=== PATIENT | male | born 1960 | race Caucasian/White ===

== ENCOUNTER 2017-11-02 13:24 | Inpatient (IN) | payer OTHER ==
[~2017-11-02] VITALS: Ht 172.7 cm; Wt 88.5 kg
[~2017-11-02 13:24] MED LIST: NOHOMEMEDICATIONS; NORCO 5-325 TA1 EACH PO
[2017-11-02 13:32] VITALS: BP 164/104
[2017-11-02 14:26] LABS: ABSOLUTE BASOPHILS 0.1 thou/uL (0.0-0.2); ABSOLUTE EOSINOPHILS 0.3 thou/uL (0.0-0.7); ABSOLUTE LYMPHOCYTES 1.7 thou/uL (0.8-5.3); ABSOLUTE MONOCYTES 1.5 thou/uL (0.0-1.2); ABSOLUTE NEUTROPHILS 12.6 thou/uL (1.6-8.1); BASOPHILS 0.9 %; EOSINOPHILS 2.1 %; HEMATOCRIT 46.4 % (42.0-52.0); HEMOGLOBIN 15.6 gm/dL (14.0-18.0); LYMPHOCYTES 10.6 %; MCH 31.2 pg (26.0-34.0); MCHC 33.5 g/dL (28.0-37.0); MCV 93.1 fL (80.0-100.0); MONOCYTES 9.4 %; MPV 8.7 fl. (7.2-11.1); NUCLEATED RBCS 0 /100WBC; PLATELET COUNT* 354 thou/uL (150-400); RBC 4.98 mil/uL (4.50-6.00); RDW-CV 13.3 % (10.5-14.5); WBC 16.4 thou/uL (4.0-11.0)
[2017-11-02 14:35] LABS: CALCIUM 8.5 mg/dL (8.5-10.1); CREATININE 0.7 mg/dL (0.6-1.3); POTASSIUM 4.2 mmol/L (3.5-5.1)
[2017-11-02 14:39] LABS: ALBUMIN 3.1 g/dL (3.4-5.0); TOTAL BILIRUBIN 0.8 mg/dL (<0.1-1.0); TOTAL PROTEIN 7.4 g/dL (6.4-8.2)
[2017-11-02 20:20] VITALS: BP 142/82
[2017-11-02 20:30] VITALS: BP 136/75
[2017-11-03 05:14] LABS: HEMATOCRIT 42.9 % (42.0-52.0); HEMOGLOBIN 14.7 gm/dL (14.0-18.0); MCH 31.6 pg (26.0-34.0); MCHC 34.3 g/dL (28.0-37.0); MCV 92.2 fL (80.0-100.0); MPV 9.3 fl. (7.2-11.1); NUCLEATED RBCS 0 /100WBC; PLATELET COUNT* 352 thou/uL (150-400); RBC 4.65 mil/uL (4.50-6.00); RDW-CV 13.5 % (10.5-14.5); WBC 14.7 thou/uL (4.0-11.0)
[2017-11-03 05:25] LABS: CALCIUM 8.2 mg/dL (8.5-10.1); CREATININE 0.7 mg/dL (0.6-1.3)
[2017-11-03 06:24] LABS: ABSOLUTE EOSINOPHILS 0.4 thou/uL (0.0-0.7); ABSOLUTE LYMPHOCYTES 1.2 thou/uL (0.8-5.3); ABSOLUTE MONOCYTES 0.6 thou/uL (0.0-1.2); ABSOLUTE NEUTROPHILS 12.5 thou/uL (1.6-8.1); ANISOCYTOSIS 1+; PLATELET ESTIMATE ADEQUATE; POIKILOCYTOSIS 1+
--- NOTE | 2017-11-03 06:37 | NUR ---
PATIENT ARRIVED ON FLOOR FROM ER ABOUT 2014 BROUGHT BY WHEELCHAIR. PATIENT ADMISSION HISTORY AND ASSESSMENT WAS COMPLETED CHARTED. IV FLUIDS WERE STARTED AT 100 ML/HR. PATIENT WAS GIVEN SCHEDULED TORADOL FOR PAIN AND NAUSEA MEDICINE ONCE. WILL CONTINUE TO MONITOR.
[2017-11-03 09:00] VITALS: BP 125/81
[2017-11-03 11:33] LABS: APTT 35.9 Seconds (25.0-31.3); INR 1.1; PROTIME 10.7 Seconds (9.20-11.50)
--- NOTE | 2017-11-03 14:58 | NUR ---
CM SPOKE TO THE PATIENT TO DISCUSS HOME SITUTAIION, DISCHARGE PLANNING, AND TO INFORM OF THE ROLE OF CM. PATIENT WORKS AND DRIVES. PATIENT RESIDES AT HOME WITH . PATIENT USES 0 DME. PATIENT HAS NO HX OF HH OR SNF. CM WILL REMAIN AVAILABLE TO ASSIST AND FOLLOW NEEDED.
[2017-11-03 16:07] VITALS: BP 160/87
[2017-11-03 16:44] VITALS: BP 151/78
--- NOTE | 2017-11-03 16:44 | NUR ---
PATIENT NPO ALL MORNING FOR ABCESS DRAIN PLACEMENT THIS AFTERNOON. DRAIN IN PLACE TO LLQ, SEROSANGINOUS DRAINAGE NOTED. VITALS STABLE. PRN ZOFRAN GIVEN X 2 FOR NAUSEA. SCHED TORADAOL GIVEN ORDERED. IVF REMAINS INFUSING WITH SCHED ABX. AT BEDSIDE. CLEAR LIQUID DIET STARTED THIS EVENING PER SURGERY.
[2017-11-03 23:41] VITALS: BP 151/63
[2017-11-04 03:44] LABS: ABSOLUTE BASOPHILS 0.1 thou/uL (0.0-0.2); ABSOLUTE EOSINOPHILS 0.3 thou/uL (0.0-0.7); ABSOLUTE LYMPHOCYTES 1.2 thou/uL (0.8-5.3); ABSOLUTE MONOCYTES 1.5 thou/uL (0.0-1.2); ABSOLUTE NEUTROPHILS 11.4 thou/uL (1.6-8.1); BASOPHILS 0.8 %; EOSINOPHILS 2.1 %; HEMATOCRIT 43.5 % (42.0-52.0); HEMOGLOBIN 14.4 gm/dL (14.0-18.0); MCH 30.7 pg (26.0-34.0); MCV 92.8 fL (80.0-100.0); MONOCYTES 10.2 %; MPV 8.6 fl. (7.2-11.1); NUCLEATED RBCS 0 /100WBC; PLATELET COUNT* 377 thou/uL (150-400); POLYS 78.9 %; RBC 4.69 mil/uL (4.50-6.00); RDW-CV 13.2 % (10.5-14.5); WBC 14.5 thou/uL (4.0-11.0)
[2017-11-04 03:54] LABS: CALCIUM 8.3 mg/dL (8.5-10.1); CREATININE 0.6 mg/dL (0.6-1.3); POTASSIUM 4.4 mmol/L (3.5-5.1)
--- NOTE | 2017-11-04 06:15 | NUR ---
PATIENT SLEPT MOST OF THE NIGHT. IV FLUIDS CONTINUE TO INFUSE AT 100 ML/HR. PATIENT WAS GIVEN PAIN MEDS TWICE THIS SHIFT. JODI DRAIN REMAINS IN PLACE TO LLQ OF THE ABDOMEN. WILL CONTINUE TO MONITOR.
[2017-11-04 09:00] VITALS: BP 122/86
[2017-11-04 16:20] VITALS: BP 171/98
[2017-11-04 20:00] VITALS: BP 177/97
--- NOTE | 2017-11-04 20:46 | NUR ---
ASSUMED CARES OF PT AT 0700. PT IN BED, BED IN LOW AND LOCKED POSITION. FALL PRECAUTIONS MONITORED, PT UP INDEPENDENTLY, STEADY GAIT. CALL BUTTON AND PERSONAL ITEMS IN PT REACH. PT A&O X4, AT BEDSIDE MOST OF SHIFT. HRRR PER AUSCULTATION, LCTAB, VSS ON RA, AFEBRILE, PERRLA, SKIN INTACT, SCATTERED BRUISING. LAST BM 6+ DAYS AGO PER PT. ABD DISTENDED, FIRM, GASSY, UNCOMFORTABLE PER PT STATEMENT AND PALPATATION. PT CLEAR LIQUID DIET. LEFT WRIST IV PATENT TO FLUSH AND IV ABT/TOLERATED, NO AVR. JODI DRAIN LEFT LQ PATENT. DR LYNCH PROVIDED NEW ORDERS FOR PT NPO, ABD XRAY AND SUPPOSITORY FOR CONSTIPATION IF PT REQUESTED. PT EXPERIENCED TWO EPISODES OF N/V, ZOFRAN ADMINISTERED, EFFECTIVE PER PT STATEMENT. HOURLY ROUNDS COMPLETED. PT COOPERATIVE, PLEASANT. REPORT TO RPG PROGRAMMER ANALYST FOR CONTINUED CARES. PT IN BED WATCHING TV AT SHIFT CHANGE.
[2017-11-05] VITALS: BP 172/97
[2017-11-05 04:16] LABS: HEMATOCRIT 43.5 % (42.0-52.0); HEMOGLOBIN 14.6 gm/dL (14.0-18.0); MCHC 33.7 g/dL (28.0-37.0); MPV 9.4 fl. (7.2-11.1); RBC 4.73 mil/uL (4.50-6.00); RDW-CV 13.2 % (10.5-14.5); WBC 13.6 thou/uL (4.0-11.0)
[2017-11-05 04:41] LABS: CALCIUM 8.5 mg/dL (8.5-10.1); CREATININE 0.6 mg/dL (0.6-1.3); PHOSPHORUS* 4.2 mg/dL (2.5-4.9); POTASSIUM 4.3 mmol/L (3.5-5.1)
[2017-11-05 07:30] VITALS: BP 154/91
--- NOTE | 2017-11-05 08:17 | NUR ---
DURING NIGHT PATIENT MX COMPLAINTS OF PAIN DISCOMFORT IN ABDOMEN ET NAUSEA NG PLACED AT 2323 EPISODE OF EMESIS OCCURED POST PLACEMENT POSITIVE FOR AUSCULTATION PLACEMENT XRAY OBTAINED FOR PLACEMENT CHECK RN [facility] RECEIVED REPORT PLACEMENT CONFIRMED NEUROLOGY SPECIALIST CONNECTED TO LOW INTERMI SUCTION ORDERED PATIENT RECEIVED PRN ANTIEMETIC X 2 ET PRN MORPHINE X 1 GEN SURG ONCALL GAVE ORDER FOR DISCOMFORT T.O PATIENT REPORTS IMPROVEMENT IN SX SPOUSE ET PATIENT REQUEST GI CONSULT IN CONJUNCTION WITH GEN SURG FOLLOWING ORDER OBTAINED Sebastian LYNCH CONSULT HIMS FOR REPORTED HTN DECLINED TO CONSULT GI AT THIS TIME PATIENT AND FAMILY DENY FURTHER CONCERNS REPORT GIVEN TO ONCOMING YASMEEN
--- NOTE | 2017-11-05 15:31 | NUR ---
ASSUMED CARE AT 0730. ALERT ORIENTED [facility]. HX OF ABDOMINAL ABCESS COLITIS. RESTING IN BED HOB ELEVATED NG TO LOW INTERMITTENT SUCTION. DRAINING BROWN LIQUID INTO CANNISTER. IV PATENT L HAND. ABDOMEN SOFT BUT DISTENDED WITH BOWEL SOUNDS. NPO, TRANSFERS WITH SBA AND HAS AMBULATED IN HALLS WITH . SURGERY DR. HUBBARD AND DR. DICKERSON ALSO. DENIES NAUSEA BUT DID HAVE PAIN DISCOMFORT GAVE TORADOL IV PUSH. VOIDED X 1 DARK IGNACIA URINE IN URINAL. AND OTHER VISITORS TODAY IN PTS. ROOM. IV FLUIDS INFUSING AT 80CC/HR. PER PUMP.
[2017-11-05 16:00] VITALS: BP 153/94
--- NOTE | 2017-11-05 18:25 | NUR ---
PT. STATES HE PASSED SMALL BROWN LIQUID WITH VOID EARLIER IN TOILET. WASNT VISUALIZED BY THIS NURSE THOUGH. AMBULATED IN HALLS SEVERAL LAPS WITH .
[2017-11-05 20:00] VITALS: BP 161/92
[2017-11-06 04:30] VITALS: BP 167/95
[2017-11-06 04:33] LABS: HEMATOCRIT 47.2 % (42.0-52.0); HEMOGLOBIN 15.8 gm/dL (14.0-18.0); MCH 30.8 pg (26.0-34.0); MCHC 33.4 g/dL (28.0-37.0); MCV 92.1 fL (80.0-100.0); MPV 9.4 fl. (7.2-11.1); NUCLEATED RBCS 0 /100WBC; PLATELET COUNT* 442 thou/uL (150-400); RBC 5.12 mil/uL (4.50-6.00); RDW-CV 13.3 % (10.5-14.5); WBC 14.5 thou/uL (4.0-11.0)
[2017-11-06 04:48] LABS: CALCIUM 8.8 mg/dL (8.5-10.1); CREATININE 0.6 mg/dL (0.6-1.3); PHOSPHORUS* 3.4 mg/dL (2.5-4.9); POTASSIUM 4.4 mmol/L (3.5-5.1)
--- NOTE | 2017-11-06 05:11 | NUR ---
ASSUMED CARE OF PATIENT AT 1900 THE PATIENT O2 SAT MAINTAINED ON RA CONTINUES TO AMBULATE AD GURINDER SPOUSE ET PATIENT DENY CONCERNS PATIENT PROGRESSING TOWARDS GOALS OF DISCHARGE. BROWN LIQUID SMEAR SMALL PASSED THIS SHIFT CONTINUES TO BE EFFECTIVE FOR SX MANAGMENT TORADOL ADMINISTERED PRN X 1 ET DULCOLAX SUPP PRN X 1 SHIFT SAFETY INTERVENTIONS CONTINUE BED LOWERED WHEELS LOCKED CALL LIGHT IN REACH SIDE RAILS UP REPORT TO BE GIVEN TO ONCOMING RN
[2017-11-06 06:29] LABS: ABSOLUTE LYMPHOCYTES 1.9 thou/uL (0.8-5.3); ABSOLUTE NEUTROPHILS 11.6 thou/uL (1.6-8.1)
[2017-11-06 06:30] LABS: PLATELET ESTIMATE INCREASED
[2017-11-06 09:30] VITALS: BP 148/98
[2017-11-06 16:37] VITALS: BP 149/97
--- NOTE | 2017-11-06 21:04 | NUR ---
ASSUMED CARES OF PT AT 0700. PT IN BED, BED IN LOW LOCKED POSITION. FALL PRECAUTIONS IN PLACE. CALL BUTTON AND PERSONAL ITEMS IN PT REACH. HOURLY ROUNDING COMPLETED. PT A&O X4, HRRR, OCC TACHY. HYPERTENSIVE THIS SHIFT. DR. DICKERSON NOTIFIED OF HYPERTENSION, STATED PT TO FOLLOW UP WITH PCP POST D/C IF HYPERTENSION CONTINUES. PT ABD FIRM AND DISTENDED AT MORNING ROUNDS. NG TUBE CLOGGED. NURSE FLUSHED AND CLEARED CLOG FROM NG TUBE, DRAINING RESUMED. JODI DRAIN IN PLACE AND PATENT, < 10ML SEROSANGUINEOUS FLUID PRESENT. AFEBRILE, PERRLA, SKIN INTACT, SCATTERED SCAR AND BRUISING. PT DENIES PAIN, JUST ABD FULLNESS, GASSY. PT UP INDEPENDENT/SBA PRN TO BATHROOM. PT HAD NOT HAD BM IN 8 DAYS, PT HAD TWO LARGE BROWN SOFT UNFORMED BM'S AND ONE SMALL LOOSE BROWN BM TODAY. MONITORING NG, JODI OUTPUT WELL BM'S. LEFT WRIST IV PATENT WITH NS INFUSING 80 ML/HR. IV ABT TOLERATED. CIPRO CAUSES NAUSEA, ZOFRAN GIVEN WITH CIPRO INFUSION. JODI DRAIN FLUSH AND DRAW 5 ML Q SHIFT. PT NPO, MEDS AND SIPS OF WATER ALLOWED. CONSULTS SURGERY MONITORING PT. PT PROGRESSING TOWARDS GOAL. COOPERATIVE, PLEASANT. REPORT TO SILK SCREEN LAYOUT DRAFTER FOR CONTINUED CARES. PT DID REPORT SOA OCC. THIS SHIFT, PT FEELS IT IS R/T FULL ABD PUSHING UP TOWARDS LUNGS. LUNGS AND HEART AUSCULTATED, RESULTS WNL. PT OCC WALKS HALLS ON UNIT WITH SPOUSE AT SIDE.
--- NOTE | 2017-11-07 03:21 | NUR ---
Pt reports he still feels bloated despite having two large BMs yesterday. Denies passing flatus, other than during BMs. Abdomen remains round and firm; bowel snds present. Denies nausea. No complaints. Ambulated in hallway just after 2100. Will continue to monitor.
[2017-11-07 04:17] VITALS: BP 158/111
[2017-11-07 04:39] LABS: HEMATOCRIT 48.2 % (42.0-52.0); HEMOGLOBIN 16.1 gm/dL (14.0-18.0); MCH 30.8 pg (26.0-34.0); MCHC 33.4 g/dL (28.0-37.0); MCV 92.1 fL (80.0-100.0); MPV 9.2 fl. (7.2-11.1); RBC 5.23 mil/uL (4.50-6.00); RDW-CV 13.3 % (10.5-14.5); WBC 13.9 thou/uL (4.0-11.0)
[2017-11-07 05:02] LABS: CALCIUM 8.3 mg/dL (8.5-10.1); CREATININE 0.7 mg/dL (0.6-1.3); MAGNESIUM 1.8 mg/dL (1.8-2.4); POTASSIUM 4.1 mmol/L (3.5-5.1)
[2017-11-07 08:00] VITALS: BP 144/99
--- NOTE | 2017-11-07 19:35 | NUR ---
ASSUMED RESPONSIBILITY OF PT THIS AM PT IS ALERT AND ORIENTED BUT VERY ANXIOUS C/O PAIN/DISCOMFORT TO ABDOMINAL AREA TORADOL GIVEN WITH RELIEF NG TUBE CONT WITH LOW INTER. SUCTION 600CC OUT TODAY AT BEDSIDE CT DONE TODAY AND SURGEON CALLED TO KEEP NG TUBE UNTIL TOMORROW THEN WILL DISCUSS FURTHER PLANS PT UP AD GURINDER TOOK A FEW WALKS TODAY NEW IV TO RAC 20G FROM DOWNSTAIRS IN CT STATED LEFT HAND IV WENT BAD FLUSHED JODI DRAIN AND ONLY GOT 2.5ML BACK PINK DRAINAGE
[2017-11-07 19:55] VITALS: BP 147/99
[2017-11-08 04:30] LABS: HEMATOCRIT 52.2 % (42.0-52.0); HEMOGLOBIN 17.5 gm/dL (14.0-18.0); MCH 30.8 pg (26.0-34.0); MCHC 33.5 g/dL (28.0-37.0); MCV 91.8 fL (80.0-100.0); MPV 9.5 fl. (7.2-11.1); RBC 5.68 mil/uL (4.50-6.00); RDW-CV 13.6 % (10.5-14.5); WBC 14.9 thou/uL (4.0-11.0)
[2017-11-08 04:41] LABS: CALCIUM 9.2 mg/dL (8.5-10.1); CREATININE 0.9 mg/dL (0.6-1.3); POTASSIUM 3.7 mmol/L (3.5-5.1)
--- NOTE | 2017-11-08 04:48 | NUR ---
ASSUMED CARE OF PT AT 1900. PT IS ALERT AND ORIENTED. VSS. NO COMPLAINTS OF PAIN. PT IS UP AD GURINDER. PT HAD NG TUBE TO LIS. PT ALSO HAS JODI DRAIN WITH A VERY SMALL AMOUNT OF DRAINAGE. PT IS SLEEPING QUIETLY IN BED. RESPIRATIONS ARE EVEN AND NONLABORED. WILL CONTINUE TO MONITOR PT.
[2017-11-08 08:16] VITALS: BP 138/100
[2017-11-08 13:32] VITALS: BP 135/88
--- NOTE | 2017-11-08 18:35 | NUR ---
PATIENT A&OX4, ROOM AIR, IV RIGHT AC, FLUIDS INFUSSING. UP AD GURINDER, STEADY GAIT. NO C/O PAIN/N/V. NG TUBE CLAMPED THIS AFTERNOON, DIET INCREASED TO CLEAR LIQUIDS FOR LUNCH. TOLERATED WELL. DIET INCREASED TO SOFT/FIBER RESTRICTED FOR DINNER, TOLLERATING WELL AT THIS TIME. NO OTHER CONCERNS AT THIS TIME. APPROPRIATE AND COOPORATIVE WITH CARE.
[2017-11-08 22:39] VITALS: BP 136/96
--- NOTE | 2017-11-09 05:58 | NUR ---
PATIENT SLEPT MOST OF THE NIGHT. IV FLUIDS CONTINUE TO INFUSE AT 80 ML/HR. JODI DRAIN REMAINS ABDOMEN. PATIENT TOLERATED DIET WELL NG TUBE WAS TAKEN OUT. PATIENT IS POSSIBLY GOING HOME TODAY. WILL CONTINUE TO MONITOR.
[2017-11-09 07:45] VITALS: BP 167/100
[2017-11-09 07:45] LABS: HEMATOCRIT 46.1 % (42.0-52.0); MCH 30.6 pg (26.0-34.0); MCHC 33.4 g/dL (28.0-37.0); MCV 91.7 fL (80.0-100.0); NUCLEATED RBCS 0 /100WBC; PLATELET COUNT* 486 thou/uL (150-400); RBC 5.03 mil/uL (4.50-6.00); RDW-CV 13.1 % (10.5-14.5); WBC 13.9 thou/uL (4.0-11.0)
[2017-11-09 07:47] LABS: CALCIUM 8.5 mg/dL (8.5-10.1); CREATININE 0.8 mg/dL (0.6-1.3); HEMOGLOBIN 15.4 gm/dL (14.0-18.0); POTASSIUM 3.1 mmol/L (3.5-5.1)
[2017-11-09 08:32] LABS: ABSOLUTE BASOPHILS 0.1 thou/uL (0.0-0.2); ABSOLUTE EOSINOPHILS 0.3 thou/uL (0.0-0.7); ABSOLUTE LYMPHOCYTES 1.9 thou/uL (0.8-5.3); ABSOLUTE MONOCYTES 1.1 thou/uL (0.0-1.2); ABSOLUTE NEUTROPHILS 10.4 thou/uL (1.6-8.1); PLATELET ESTIMATE ADEQUATE
--- NOTE | 2017-11-09 11:54 | NUR ---
Nutrition: Pt assessed for LOS. Admitted with colitis. Pt is tolerating Soft/low fiber diet. No N/V. +BMs. Wt stable, 196#. Albumin 3.1. Pt appears at low risk. Likely to discharge home tomorrow.
[2017-11-09 16:01] VITALS: BP 133/76
--- NOTE | 2017-11-09 16:40 | NUR ---
PATIENT A&OXR, ROOM AIR, IV RIGHT AC FLUIDS INFUSSING. UP AD GURINDER, STEADY GAIT, HAS WALKED THE HALLS SEVERAL TIMES THROUGHOUT TODAY. C/O BACK PAIN, RELIEF WITH MEDICATION. JODI DRAIN LOCATED IN LLQ, 10ML OF MILKY BROWN DRAINAGE NOTED. PHYSICIAN AWARE. NO OTHER CONCERNS AT THIS TIME. APPROPRAITE AND COOPORATIVE WITH CARE.
[2017-11-10 00:31] VITALS: BP 108/69
--- NOTE | 2017-11-10 05:39 | NUR ---
PATIENT SLEPT MOST OF THE NIGHT. PATIENT WAS GIVEN PAIN MEDICINE ONCE FOR BACK PAIN. JODI DRAIN REMAINS IN PLACE TO ABDOMEN. IV FLUIDS AND ANTIBIOTICS WERE GIVEN ORDERED. PATIENT IS POSSIBLY GOING HOME TODAY.
[2017-11-10 08:10] VITALS: BP 154/91
[2017-11-10] MEDS ORDERED: AUGMENTIN 875-1 EACH PO (14:05)
[2017-11-10 14:27] VITALS: BP 154/91
--- NOTE | 2017-11-10 15:30 | NUR ---
PATIENT DISCHARGED TO HOME. DISCHARGE PAPERS REVIEWED AND SIGNED. PRESCRIPTIONS AND INFORMATION SHEETS GIVEN. IV REMOVED. PATIENT GIVEN INSTRUCTION ON JODI DRAIN CARE. FOLLOW-UP CT SCAN ORDER FAXED TO SCHEDULING. PATIENT DENIES ANY FURTHER NEEDS. PATIENT TAKEN AMBULATORY TO EXIT. LEFT WITH .
--- NOTE | 2017-11-17 15:15 | EKG ---
[place] [address] ELECTROCARDIOGRAM REPORT Name: JACK AGUILAR Room: [facility] IN [facility].#: [id number] Admission: 11/02/17 Attend Phys: Mauro Singer DO Discharge: 11/10/17 Date of : 62 Report #: [id number] THIS REPORT FOR: //name// [facility] ED Test Date: 2017-11-16 Test Time: 17:31:31 Pat Name: JACK JEFF Department: Room: [facility] Gender: M Loan Review Manager: Eduardo MOSQUERA : 1960 Requested By: Mariely Puente Order Number: [id number] MD: Sukhi Bradley Measurements Intervals [place] Rate: 83 P: 15 HI: 161 QRS: -20 QRSD: 108 T: -1 QT: 399 QTc: 469 Interpretive Statements Sinus rhythm Probable left atrial enlargement Left ventricular hypertrophy Artifact in lead(s) I,II,aVR and baseline wander in lead(s) V4 Compared to ECG 03/23/2007 15:12:34 Left ventricular hypertrophy now present Electronically Signed On 11-17-2017 15:15:37 CDT by Sukhi Bradley [email or web address] <ELECTRONICALLY SIGNED> By: Sukhi Bradley MD, [facility] 11/17/17 1515 1731 1731 Sukhi Bradley MD, [facility] /EPI
== END 2017-11-10 15:30 | disposition home or self-care (01) | DRG 872 ==
LOC: M.ERS 13:24 → M.3W 16:32 → M.TBA-ER 16:32 → M.3W 20:02
PROVIDERS: Internal Medicine; Nurse Practitioner Family; Radiology Diagnostic Radiology; Surgery; ADMIT Surgery
PROC: 0W9F30Z Drainage of Abdominal Wall with Drainage Device, Percutaneous Approach (ICD-10-PCS; principal; 2017-11-03)
DX: A41.9 Sepsis, unspecified organism (principal); E44.1 Mild protein-calorie malnutrition; K57.20 Diverticulitis of large intestine with perforation and abscess without bleeding; K94.23 Gastrostomy malfunction; F17.210 Nicotine dependence, cigarettes, uncomplicated; I10 Essential (primary) hypertension; K52.89 Other specified noninfective gastroenteritis and colitis; N40.0 Benign prostatic hyperplasia without lower urinary tract symptoms; Z90.49 Acquired absence of other specified parts of digestive tract; Z68.29 Body mass index [BMI] 29.0-29.9, adult

== ENCOUNTER 2017-11-16 17:18 | Inpatient (IN) | payer OTHER ==
[~2017-11-16] VITALS: Ht 172.7 cm; Wt 88.5 kg
--- NOTE | ~2017-11-16 | EKG ---
[place] [address] ELECTROCARDIOGRAM REPORT Name: JACK AGUILAR Room: [address] ADM IN M.R.#: [id number] Admission: 11/16/17 Attend Phys: Mauro Singer DO Discharge: Date of : 62 Report #: [id number] THIS REPORT FOR: //name// [facility] ED Test Date: 2017-11-16 Test Time: 17:32:30 Pat Name: JACK AGUILAR Department: Room: [address] Gender: M Harvest Contractor: Eduardo MOSQUERA : 1960 Requested By: Mariely Puente Order Number: [id number] Jonel MD: Measurements Intervals [place] Rate: 80 P: 11 AL: 163 QRS: -17 QRSD: 108 T: 12 QT: 413 QTc: 477 Interpretive Statements Sinus rhythm Probable left atrial enlargement Left ventricular hypertrophy Borderline prolonged QT interval Compared to ECG 03/23/2007 15:12:34 Left ventricular hypertrophy now present [email or web address] By: 173 1732 Epiphany Epiphany, /EPI
[~2017-11-16 17:18] MED LIST changes: -ASPIR 8181 MG PO; -LIPITOR 10 MG10 M1 PO; -MINOCIN100 MG PO; -TYLENOL325 MG PO
[2017-11-16 17:19] VITALS: BP 143/89
[2017-11-16 17:49] LABS: URINE BLOOD NEGATIVE (Negative); URINE CLARITY CLEAR; URINE COLOR YELLOW; URINE GLUCOSE-RANDOM NEGATIVE (Negative); URINE KETONES 1+ (Negative); URINE LEUKOCYTES-REFLEX NEGATIVE (Negative); URINE NITRITE-REFLEX NEGATIVE (Negative); URINE PROTEIN 1+ (Negative); URINE UROBILINOGEN 0.2 E.U./dl (0.2-1.0)
[2017-11-16 17:52] LABS: ICTOTEST (BILI CONFIRMATORY) Negative (Negative); URINE BILIRUBIN 1+ (Negative)
[2017-11-16 18:11] LABS: HEMATOCRIT 48.6 % (42.0-52.0); HEMOGLOBIN 16.2 gm/dL (14.0-18.0); MCH 30.8 pg (26.0-34.0); MCHC 33.3 g/dL (28.0-37.0); MCV 92.5 fL (80.0-100.0); MPV 8.7 fl. (7.2-11.1); NUCLEATED RBCS 0 /100WBC; PLATELET COUNT* 537 thou/uL (150-400); RBC 5.25 mil/uL (4.50-6.00); RDW-CV 13.9 % (10.5-14.5); WBC 21.3 thou/uL (4.0-11.0)
[2017-11-16 18:28] LABS: ANION GAP 17 mmol/L (7-16); BUN 9 mg/dL (7-18); CALCIUM 9.1 mg/dL (8.5-10.1); CHLORIDE 104 mmol/L (98-107); CO2 21 mmol/L (21-32); CREATININE 0.9 mg/dL (0.6-1.3); GLUCOSE 100 mg/dL (70-99); POTASSIUM 3.8 mmol/L (3.5-5.1); SODIUM 142 mmol/L (136-145)
[2017-11-16 18:35] LABS: ALBUMIN 3.5 g/dL (3.4-5.0); ALKALINE PHOSPHATASE 92 U/L (46-116); LIPASE 83 U/L (73-393); SGOT 25 U/L (15-37); SGPT 26 U/L (30-65); TOTAL BILIRUBIN 0.4 mg/dL (<0.1-1.0); TOTAL PROTEIN 7.3 g/dL (6.4-8.2); TROPONIN-I LEVEL <0.06 ng/mL (<0.06)
--- NOTE | 2017-11-16 18:51 | NUR ---
DR BILLS REQUESTED PATIENT NOT TAKEN TO FLOOR UNTIL AFTER CT AND AFTER HE DOES HIS PROCEDURE IN ED.
[2017-11-16 18:54] LABS: ABSOLUTE EOSINOPHILS 2.6 thou/uL (0.0-0.7); ABSOLUTE LYMPHOCYTES 1.9 thou/uL (0.8-5.3); ABSOLUTE MONOCYTES 0.9 thou/uL (0.0-1.2)
[2017-11-16 18:55] LABS: PLATELET ESTIMATE ADEQUATE
[2017-11-16 19:48] VITALS: BP 141/92
[2017-11-16 20:00] VITALS: BP 142/96
[2017-11-17 00:05] VITALS: BP 132/89
[2017-11-17 04:03] VITALS: BP 127/84
[2017-11-17 05:24] LABS: HEMATOCRIT 42.7 % (42.0-52.0); HEMOGLOBIN 14.5 gm/dL (14.0-18.0); MCH 30.7 pg (26.0-34.0); MCV 90.2 fL (80.0-100.0); MPV 9.2 fl. (7.2-11.1); NUCLEATED RBCS 0 /100WBC; PLATELET COUNT* 533 thou/uL (150-400); RBC 4.74 mil/uL (4.50-6.00); RDW-CV 13.9 % (10.5-14.5); WBC 14.8 thou/uL (4.0-11.0)
[2017-11-17 05:36] LABS: CALCIUM 8.3 mg/dL (8.5-10.1); CREATININE 0.7 mg/dL (0.6-1.3); POTASSIUM 3.2 mmol/L (3.5-5.1)
[2017-11-17 06:10] LABS: ABSOLUTE LYMPHOCYTES 2.5 thou/uL (0.8-5.3); ABSOLUTE MONOCYTES 0.6 thou/uL (0.0-1.2); ABSOLUTE NEUTROPHILS 8.7 thou/uL (1.6-8.1); PLATELET ESTIMATE INCREASED
[2017-11-17 06:11] LABS: ANISOCYTOSIS 1+; POIKILOCYTOSIS 1+
--- NOTE | 2017-11-17 07:40 | NUR ---
PT ARRIVED ON UNIT FROM ER. PT ORIENTED TO ROOM, FALL AGREEMENT WENT OVER, CALL LIGHT SHOWN. PT STATED UNDERSTANDING. ASSESSMENT DOCUMENTED. MEDS GIVEN PER E-MAR. IV PATENT, FLUIDS INFUSING. PT REPORTED SEVERE HEARTBURN. NOTIFIED. NO BLEEDING FROM ABD WOUND THIS SHIFT. DRESSING C/D/I. PT VOIDING ADEQUATLY. WILL CONTINUE WITH PLAN OF CARE.
[2017-11-17 07:45] VITALS: BP 144/99
[2017-11-17 16:42] VITALS: BP 149/91
--- NOTE | 2017-11-17 18:22 | NUR ---
PATIENT UP IN RECLINER. PATIENT IS UP AD GURINDER IN ROOM AND HAS WALKED IN HALLS. PATIENT HAD A COUPLE SMALL BOWEL MOVEMENTS TODAY AFTER MOM AND SUPPOSITORY. PATIENT HAS GAS PAINS AND INCREASED ABDOMINAL DISTENSION/BLOATING THIS EVENING. DR PATEL NOTIFIED AND GERARDOICON GIVEN AND MADE NPO WITH SIPS. PATIENT DENIES ANY NEEDS AT THIS TIME. CALL LIGHT WITHIN REACH. WILL CONTINUE TO MONITOR.
[2017-11-17 20:00] VITALS: BP 147/96
[2017-11-18 04:36] LABS: HEMATOCRIT 45.8 % (42.0-52.0); HEMOGLOBIN 15.2 gm/dL (14.0-18.0); MCH 30.4 pg (26.0-34.0); MCHC 33.2 g/dL (28.0-37.0); MCV 91.6 fL (80.0-100.0); MPV 9.3 fl. (7.2-11.1); RDW-CV 13.6 % (10.5-14.5); WBC 17.9 thou/uL (4.0-11.0)
[2017-11-18 05:10] LABS: CALCIUM 9.4 mg/dL (8.5-10.1); CREATININE 0.7 mg/dL (0.6-1.3); MAGNESIUM 2.2 mg/dL (1.8-2.4); PHOSPHORUS* 4.2 mg/dL (2.5-4.9)
[2017-11-18 05:15] LABS: POTASSIUM 4.2 mmol/L (3.5-5.1)
--- NOTE | 2017-11-18 05:58 | NUR ---
PT SLEPT ON AND OFF IN RECLINER THIS SHIFT. ASSESSMENT DOCUMENTED. MEDS GIVEN PER E-MAR. NEW IV STARTED, FLUIDS INFUSING. PT REPORTED MORE PAIN IN HIS BACK THIS SHIFT, IV PAIN MEDS GIVEN PER E-MAR WITH RELIEF. NO BLEEDING FROM DRAIN REMOVAL SITE. PT STATED HE DID HAVE SOME SMALL LIQUID STOOLS. WILL CONTINUE WITH PLAN OF CARE.
[2017-11-18 07:40] VITALS: BP 142/98
--- NOTE | 2017-11-18 15:41 | NUR ---
INITIAL ASSESSMENT: Pt evaluated for d/c planning needs. Reviewed chart. Pt was hospitalized recently. Pt lives in house with spouse and was independent with ADL's prior to admission. Pt is employed and is still driving. Pt uses no DME and has not had home health in the past. Pt plans on returning home on d/c from hospital. Will remain available to assist as needed.
[2017-11-18 16:11] VITALS: BP 167/101
--- NOTE | 2017-11-18 20:15 | NUR ---
PATIENT RESTING IN BED. PATIENT UP AD GURINDER IN ROOM. PATIENT WALKS IN HALLWAYS. PATIENT HAS HAD MULTIPLE SMALL LOOSE BOWEL MOVEMENTS. PATIENT CONTINUES TO BE BLOATED AND DISTENDED. NG TUBE PLACED THIS AFTERNOON AND PATIENT STATES IT HAS PROVIDED MUCH RELIEF. PATIENT IS NOW NPO. PATIENT DENIES ANY NEEDS AT THIS TIME. CALL LIGHT WITHIN REACH. WILL CONITNUE TO MONITOR.
[2017-11-18 20:25] VITALS: BP 152/98
[2017-11-19 05:59] LABS: HEMATOCRIT 43.3 % (42.0-52.0); HEMOGLOBIN 14.2 gm/dL (14.0-18.0); MCH 30.1 pg (26.0-34.0); MCHC 32.8 g/dL (28.0-37.0); MCV 91.8 fL (80.0-100.0); MPV 9.4 fl. (7.2-11.1); RBC 4.72 mil/uL (4.50-6.00); RDW-CV 13.8 % (10.5-14.5); WBC 12.6 thou/uL (4.0-11.0)
[2017-11-19 06:16] LABS: CALCIUM 8.5 mg/dL (8.5-10.1); CREATININE 0.7 mg/dL (0.6-1.3); POTASSIUM 3.1 mmol/L (3.5-5.1)
--- NOTE | 2017-11-19 06:19 | NUR ---
PT SLEPT AT [place] DURING THE NIGHT, IV FUIDS INFUSED, NG TO LIS, BROWN DRAINGE FROM TUBE, PT REPORTS FEELING "MUCH BETTER SINCE NG." MULTIPLE BOWEL MOVEMENTS, UP AD GURINDER, PRN PAIN MED AT HS, CALL LIGHT IN REACH, WILL CONTINUE TO MONITOR
[2017-11-19 08:15] VITALS: BP 158/94
[2017-11-19 16:00] VITALS: BP 136/99
[2017-11-19 19:55] VITALS: BP 158/107
--- NOTE | 2017-11-19 19:58 | NUR ---
PATIENT RESTING IN BED. PATIENT IS UP AD GURINDER IN ROOM AND WALKS IN HALLWAYS MULTIPLE TIMES THROUGHOUT DAY. PATIENT HAS NG TUBE TO LIS WITH A BROWN OUTPUT. PATIENT GIVEN RELISTOR ORDERED AND PATIENT HAS HAD MULTIPLE LOOSE BOWEL MOVEMENTS. PATIENT IS STILL BLOATED AND DISTENDED, NOT PASSING GAS. PATIENT IS NPO WITH INTERMITTENT ICE CHIPS. PATIENT DENIES ANY NEEDS AT THIS TIME. CALL LIGHT WITHIN REACH. WILL CONTINUE TO MONITOR.
--- NOTE | 2017-11-20 05:54 | NUR ---
PT SLEPT AT INTERVALS DURING THE NIGHT, PLEASANT, UP AD GURINDER, IV FLUIDS INFUSED, NG TO LIS, NO PAIN MEDS NEED, PLEASANT, CALL LIGHT IN REACH, WILL CONTINUE TO MONITOR
[2017-11-20 09:30] VITALS: BP 173/105
[2017-11-20 15:46] VITALS: BP 145/94
[2017-11-20 20:00] VITALS: BP 176/105
--- NOTE | 2017-11-20 20:00 | NUR ---
RECEIVED REPORT AND ASSUMED CARE OF PT, ASSESSMENT COMPLETED. NG PATENT, IRRIGATED AND ASPIRATED EASILY. CONNECTED TO LIS, WITH LT BROWN SECRETIONS. INFORMED ABD SOFTER. CONT TO BE DISTENDED. INDEPENDENT BRP WITH STEADY GAIT. WILL CONT TO MONITOR AND ASSIST NEEDED.
--- NOTE | 2017-11-20 21:00 | NUR ---
I ASSUMED CARE OF THE PATIENT AT 0700. HE IS ALERT AND ORIENTED X4. BED IS IN THE LOW LOCKED POSITION AND CALL LIGHT IS IN REACH. AND OR DAD HAVE BEEN AT THE BEDSIDE ALL DAY. HOURLY ROUNDING WAS COMPLETED AND PATIENT NEEDS WERE MET. PAIN WAS MANAGED WITH PRN MEDS. PATIENT WAS DISCONNECTED FROM NG LIS AT 0915 TO DRINK CONTRAST FOR A CT. HE WAS TAKEN OFF THE UNIT AT 1045 AND RETURNED ABOUT 1115. LIS WAS HOOKED BACK UP. AROUND 1230 I ATTEMPTED TO IRRIGATE AND FLUSH THE NG SINCE THERE WAS NO NEW OUTPUT AND PATIENT LOOKED/FELT MORE DISTENDED. I CONTACTED DR AGUILAR WHO ADVISED THAT I TRY TO USE SPRITE DOWN THE TUBE, THEN A COCKTAIL TO ATTEMPT TO UNCLOG PRIOR TO REPLACING. PLACEMENT WAS CHECKED AND CONFIRMED IN THE STOMACH. PANCRELIPASE AND SODIUM BICARBONATE FROM THE PROTOCOL WERE USED TO UNCLOG THE TUBE AND LEFT CLAMPED FOR 30 MINUTES. WITHOUT LUCK, WE D/C'D THE TUBE AND REPLACED IT. PATIENT'S RIGHT NARE IS NOT PATENT. NEW NG WAS PLACED, VERIFIED WITH XRAY AND CHARTED. IT WAS BACKED UP 4 CM AND TAPED AT 59 AT THE NOSE. TUBE IMMEDIATELY STARTED DRAINING TO GRAVITY. IT IS NOW ON LIS AGAIN. WILL CONTINUE TO MONITOR. FLUIDS ARE INFUSING.
--- NOTE | 2017-11-21 06:55 | NUR ---
SLEPT FAIRLY WELL TONIGHT. NG FUNCTIONING WELL TO LIS, OUTPUT OF 1050 CC OF BROWN SECRETIONS. PT UP TO BR INDEPENDENTLY, ABLE TO TAKE APART AND RECONNECT NG HIMSELF. ABD REMAINS DISTENDED BUT SOFTER. ACHIEVED HS GOALS OF REST AND SAFETY. HOURLY ROUNDING OBSERVED.
[2017-11-21 09:45] VITALS: BP 155/93
--- NOTE | 2017-11-21 15:29 | NUR ---
CM SPOKE TO THE PATIENT TO DISCUSS ANY QUESTIONS OR CONCERNS THAT HE MAY HAVE. PATIENT HAS NO QUESTIONS OR CONCERNS AT THIS TIME, AND DOES NOT BELIEVE THAT HE WILL NEED ANYTHING AT D/C. G.I. HAS BEEN CONSULTED AND IS FOLLOWING THE PATIENT. CM WILL REMAIN AVAILABLE TO ASSIST AND FOLLOW NEEDED.
[2017-11-21 16:00] VITALS: BP 156/87
--- NOTE | 2017-11-21 17:01 | NUR ---
PATIENT NG REMAINS TO LIS, LARGE OUTPUT THIS SHIFT. ICE CHIPS SPARINGLY. IVF AND SCHED ABX REMAIN INFUSING ORDERED. PO PEPCID CHANGED TO IV. PER GI REGLAN STARTED THIS SHIFT, NO DECOMPRESSION COLONOSCOPY AT THIS TIME. PATIENT UP AD GURINDER AROUND ROOM. PATIENT CONTINUES TO HAVE LIQUID STOOLS. ABD XRAY RESULTS CALLED TO DR. LYNCH, ORDERS RECEIVED.
[2017-11-21 20:00] VITALS: BP 157/97
[2017-11-22 05:57] LABS: HEMATOCRIT 42.5 % (42.0-52.0); HEMOGLOBIN 14.6 gm/dL (14.0-18.0); MCH 31.2 pg (26.0-34.0); MCHC 34.3 g/dL (28.0-37.0); MCV 91.2 fL (80.0-100.0); MPV 9.5 fl. (7.2-11.1); RBC 4.66 mil/uL (4.50-6.00); RDW-CV 13.7 % (10.5-14.5); WBC 10.4 thou/uL (4.0-11.0)
[2017-11-22 06:03] LABS: CALCIUM 8.8 mg/dL (8.5-10.1); CREATININE 0.8 mg/dL (0.6-1.3); PHOSPHORUS* 4.3 mg/dL (2.5-4.9); POTASSIUM 3.3 mmol/L (3.5-5.1)
--- NOTE | 2017-11-22 06:22 | NUR ---
PT SLEPT ON AND OFF THIS SHIFT. ASSESSMENT DOCUMENTED. MEDS GIVEN PER E-NOV. PT REPORTED NO PAIN OR NAUSEA. IV PATENT, FLUIDS INFUSING. NG TUBE SUCTIONED 1400ML THIS SHIFT. WILL CONTINUE WITH PLAN OF CARE.
[2017-11-22 07:55] VITALS: BP 165/93
--- NOTE | 2017-11-22 15:02 | NUR ---
CONSULTED TO PLACE PICC FOR TPN. ORDER AND CONSENT NOTED. SPOKE WITH PT REGUARDING PICC RISK AND BRNIFIT. VOICED UNDERSTANDING AND AGREED. RIGHT UPPER ARM ASSESSED WITH ULTRASOUND. BASILIC VEIN IDENTIFIED AND JAMAL PATENT. UNABLE TO PUNCTURE VEIN ON MULTIPLE ATTEMPTS, NEEDLE SEEMED TO BE PUSHING/COLAPSING VEIN. LEFT UPPER ARM ASSESSED AND BASILIC VEIN IDENTIFIED ADN NOTED TO BE JAMAL JULES. A 4FR POWER INJECTABLE DUAL LUMAN PICC PLACED PER HOSPITAL POLICY. LINE SECURED AND STAT CHEST X-RAY ORDERED.
[2017-11-22 16:00] VITALS: BP 138/87
--- NOTE | 2017-11-22 16:41 | NUR ---
PATIENT HAD PICC LINE PLACED THIS AFTERNOON PER SURGERY ORDERS FOR TPN TO START TONIGHT. LEFT UPPER ARM PICC LINE DOUBLE LUMEN FLUSHING WITHOUT DIFFICULTY AND BLOOD RETURN NOTED. PER DR. JOY LEAVE NG CLAMPED THIS EVENING AND THEN PIECE JOBBER TO LIS AROUND 1800, IF PATIENT HAS 300 OR MORE OUTPUT DURING THAT TIME THEN LEAVE NG ATTACHED TO LIS. IVF AND SCHED ABX INFUSED. POTASSIUM BEING REPLACED. REMAINS NPO.
[2017-11-22 20:20] VITALS: BP 170/99
[2017-11-23 05:06] LABS: ALBUMIN 2.9 g/dL (3.4-5.0); CALCIUM 8.5 mg/dL (8.5-10.1); CREATININE 0.7 mg/dL (0.6-1.3); PHOSPHORUS* 3.2 mg/dL (2.5-4.9); POTASSIUM 3.1 mmol/L (3.5-5.1); TOTAL BILIRUBIN 0.9 mg/dL (<0.1-1.0); TOTAL PROTEIN 6.4 g/dL (6.4-8.2)
--- NOTE | 2017-11-23 05:51 | NUR ---
PT SLEPT ON AND OFF THIS SHIFT. ASSESSMENT DOCUMENTED. MEDS GIVEN PER E-NOV. PICC PATENT. TPN STARTED THIS SHIFT, PT TOLERATING WELL. NG REMAINED CLAMPED WITH NO REPORTS OF NAUSEA. PT REPORTS PASSING GAS AND HAVING LIQUID STOOLS. NO REPORTS OF PAIN. WILL CONTINUE WITH PLAN OF CARE.
[2017-11-23 07:42] VITALS: BP 165/95
[2017-11-23 13:12] VITALS: BP 159/106
--- NOTE | 2017-11-23 13:16 | NUR ---
Nutrition: Pt seen for TPN started. Pt has NG tube - clamped x24 hours now. Pt stated "they said I'd be able to eat soft food tonight and take this tube out." Wt: 195#. Admitted with colitis, bowel obstruction. + small BM, passing flatus. Albumin 2.9, prealb 14.7, BG ok. TPN @ 80mL/hr currently. Hopeful for d/c of TPN and diet advancement tonight. RD will follow up tomorrow on diet order, TPN, po tolerance, 3..18.
[2017-11-23 14:46] VITALS: BP 147/105
[2017-11-23 15:07] VITALS: BP 141/98
--- NOTE | 2017-11-23 16:15 | NUR ---
CONSULTED FOR PICC LINE RED LUMAN NOT FUNCTIONING. NURSING REPORTS NO BLOOD RETURN AND NO ABILITY TO FLUSH. LINE EVALUATED AND LINE NOTED TO BE KINKED AT HUB. STERILE DRESSING CHANGE WITH STAT LOCK MOVED TO UNKINK LINE. LINE THEN ABLE TO FLUSH WITH EASE AND GOOD BRISK BLOOD RETURN NOTED. PRIMARY NURSE MAAME IN ROOM. TPN AND OTHER IV MEDS RESTARTED AND RUNNING WITH EASE.
--- NOTE | 2017-11-23 16:35 | NUR ---
PATIENT REMAINS NPO, NG REMAINS CLAMPED. PATIENT CONTINUES TO PASS FLATUS AND HAVE BM'S. TPN REMAINS INFUSING, SCHED ABX GIVEN. POTASSIUM REPLACED IV. CT RESULTS THIS EVENING CALLED TO DR. PATEL, DR. BILLS WILL BE BY THIS EVENIGN TO SEE PATIENT. PATIENT FRUSTRATED TODAY STATING HE EITHER WANTS TO HAVE SURGERY OR GO HOME.
[2017-11-23 23:28] VITALS: BP 149/106
[2017-11-24 05:27] VITALS: BP 90/66
--- NOTE | 2017-11-24 05:30 | NUR ---
ASSESSMENT COMPLETE. PT GIVEN TYLENOL AT BEGINING OF SHIFT FOR HEADACHE. PT DRANK MAG CITRATE, PT REPORTS LIQUID STOOLS. PT HAS NG IN PLACE, CLAMPED AT THIS TIME. PT HAS PICC IN LEFT UPPER ARM WITH TPN INFUSING AT 80ML/HR. PT IS UP AD GURINDER TO BATHROOM WITH STEADY GAIT. PT DENIES N/V AT THIS TIME. SEE ASSESSMENT AND VITALS FOR OTHER DETAILS. CALL LIGHT WITHIN REACH, WILL CONTINUE PLAN OF CARE
[2017-11-24 05:31] LABS: HEMOGLOBIN 16.5 gm/dL (14.0-18.0); MCH 30.7 pg (26.0-34.0); MCHC 33.8 g/dL (28.0-37.0); MPV 9.7 fl. (7.2-11.1); RBC 5.38 mil/uL (4.50-6.00); WBC 10.9 thou/uL (4.0-11.0)
[2017-11-24 05:52] LABS: CALCIUM 9.6 mg/dL (8.5-10.1); CREATININE 0.8 mg/dL (0.6-1.3); MAGNESIUM 2.3 mg/dL (1.8-2.4); PHOSPHORUS* 4.1 mg/dL (2.5-4.9)
[2017-11-24 08:30] VITALS: BP 112/82
[2017-11-24 12:45] VITALS: BP 133/76
[2017-11-24 16:21] VITALS: BP 93/64
--- NOTE | 2017-11-24 17:00 | NUR ---
ASSUMED CARE OF PATIENT AT THIS TIME. PATIENT RESTING IN BED AND ENJOYING CLEAR LIQUIDS. NG TUBE REMOVED BY DR BILLS. COLONIC DECOMPRESSION TUBE IN PLACE AND HOOKED UP TO LIS. PATIENT DENIES ANY PAIN. CALL LIGHT WITHIN REACH. WILL CONTINUE TO MONITOR.
[2017-11-24 20:05] VITALS: BP 117/74
--- NOTE | 2017-11-25 05:23 | NUR ---
PT SLEPT SOUNDLY DURING THE NIGHT, COLONIC DEPRESSION TUBE FLUSHED WITH WATER AND AIR AT THE BEGINNING OF THE SHIFT, THEN SLEPT DURING THE NIGHT, TPN INFUSED, IV ANTIBIOTIC GIVEN, PT PLEASANT, DENIED PAIN OR NAUSEA, CALL LIGHT IN REACH, VOIDED PER URINAL, CALL LIGHT IN REACH, WILL CONTINUE TO MONITOR
[2017-11-25 06:58] LABS: ABSOLUTE BASOPHILS 0.1 thou/uL (0.0-0.2); ABSOLUTE EOSINOPHILS 1.1 thou/uL (0.0-0.7); ABSOLUTE LYMPHOCYTES 1.9 thou/uL (0.8-5.3); ABSOLUTE MONOCYTES 0.9 thou/uL (0.0-1.2); ABSOLUTE NEUTROPHILS 5.3 thou/uL (1.6-8.1); BASOPHILS 1.2 %; EOSINOPHILS 11.5 %; HEMATOCRIT 39.7 % (42.0-52.0); LYMPHOCYTES 20.5 %; MCH 30.8 pg (26.0-34.0); MCHC 33.8 g/dL (28.0-37.0); MCV 91.3 fL (80.0-100.0); MONOCYTES 9.8 %; MPV 9.2 fl. (7.2-11.1); NUCLEATED RBCS 0 /100WBC; PLATELET COUNT* 229 thou/uL (150-400); RBC 4.35 mil/uL (4.50-6.00); RDW-CV 13.7 % (10.5-14.5); WBC 9.3 thou/uL (4.0-11.0)
[2017-11-25 07:00] LABS: HEMOGLOBIN 13.4 gm/dL (14.0-18.0)
[2017-11-25 07:21] LABS: ALBUMIN 2.5 g/dL (3.4-5.0); CREATININE 0.6 mg/dL (0.6-1.3); MAGNESIUM 1.8 mg/dL (1.8-2.4); PHOSPHORUS* 4.2 mg/dL (2.5-4.9); TOTAL BILIRUBIN 0.4 mg/dL (<0.1-1.0); TOTAL PROTEIN 5.6 g/dL (6.4-8.2)
[2017-11-25 07:24] LABS: CALCIUM 7.6 mg/dL (8.5-10.1)
[2017-11-25 07:50] VITALS: BP 120/85
--- NOTE | 2017-11-25 11:23 | CON ---
[address] [address] CONSULTATION Name: JACK AGUILAR Room: [address] IN .R.#: [id number] Admission: 11/16/17 Attend Phys: Mauro Singer, Discharge: Date of : 62 Report #: [id number] THIS REPORT FOR: //name// CC: Mauro Singer FAM physician/PCP Niyah Montano DATE OF SERVICE: 11/25/2017 ATTENDING PHYSICIAN: Dr. Singer. REASON FOR EVALUATION: Diverticulitis with abscess. HISTORY OF PRESENT ILLNESS: Chart reviewed, patient examined. This 57-year-old without significant medical history, was admitted on 11/02 with a left lower quadrant pain. Clinical picture confirmed diverticulitis with likely perforation. He was treated with percutaneous drain placement. He was discharged. Cultures at that time grew out Streptococcus anginosus. He initially did fairly well. However, over the course of few days prior to his readmission, he had increasing abdominal pain and bloating. On readmission, it was confirmed to have additional abscess. Tube was actually pulled, has been on empiric therapy most recently with levofloxacin and metronidazole. He did undergo a decompression of his colon and has tube in pending surgery. Most recent CT on 11/23 showed abscess arising the inferior aspect of the sigmoid colon involving the dome of the urinary bladder, possible developing fistula, extensive thickening of the sigmoid colon, which has been unchanged as well as question of a partial colonic obstruction. Of note, he has not had fevers, had a period of nausea; however, this resolved. Denies significant pulmonary-related complaints. He is not encephalopathic. ALLERGIES: None known. MEDICATIONS: Currently include acetaminophen, TPN, metoclopramide, famotidine, levofloxacin and metronidazole. PAST MEDICAL HISTORY: BPH, previous tonsillectomy. SOCIAL HISTORY: Former smoker, occasional ethanol. FAMILY HISTORY: Noncontributory. REVIEW OF SYSTEMS: As above. PHYSICAL EXAMINATION: GENERAL: Pleasant, alert, cooperative, in mild distress. VITAL SIGNS: Temperature 98.4, pulse 84, respirations 18, [place] [id number] CONSULTATION Name: JACK AGUILAR Room: [address]#: [id number] Admission: 11/16/17 Attend Phys: Mauro Singer, DO Discharge: Date of : 62 Report #: [id number] 117/74. SKIN: Warm, dry, no rashes. HEENT: Otherwise, unremarkable. NECK: Supple. LUNGS: Diminished breath sounds, scattered crackles at the bases. HEART: Regular. I did not appreciate any murmur. ABDOMEN: Mildly distended. There are no overt peritoneal signs. GENITOURINARY: Deferred. RECTAL: Deferred. LABORATORY DATA: Electrolytes: Sodium 142, potassium 3.0, chloride 108, bicarb 23, BUN and creatinine 10 and 0.6, glucose of 92. LFTs unremarkable. Albumin of 2.5, total protein of 5.6. Estimated GFR 139. CBC: White count of 9.3, H and H 13.4 and 39.7, platelets of 229. CT as described above. ASSESSMENT: Diverticulitis, complicated by perforation, abscess, perhaps developing fistula. We will adjust antimicrobial therapy. There is no particular availability of cultures or sites at this point. He had been on quinolone and metronidazole for a number of days. We would be concerned about more resistant organisms, potentially yeast as well noted. PLAN: For probable laparoscopic surgery next week. In addition to that discussed issues of nosocomial related infectious complications. We will add incentive spirometry, should be as active as he can, continue supportive measures. <ELECTRONICALLY SIGNED> By: Jonathan Kohler MD 11/25/17 [id number] Kohler MD /nt
--- NOTE | 2017-11-25 15:50 | NUR ---
PT HAD COLONOSCOY WITH DECOMPRESSION TUBE PLACED YESTERDAY. IS ON CLEAR LIQ DIET, CONTINUES ON IVAB. CASE MGT WILL CONTINUE TO FOLLOW.
[2017-11-25 17:00] VITALS: BP 143/78
--- NOTE | 2017-11-25 17:37 | NUR ---
PATIENT IS ALERT AND ORIENTED TODAY VERY PLEASANT. NO COMPLAINTS OF ANY PAIN TODAY. COLONIC DECOMPRESSION TUBE IS IN PLACE AND IUS DRAINING WELL, HAS BEEN FLUSHED TODAY DIRECTED. PICC LINE IN LEFT UPPER ARM WORKS WELL WITH IV AND TPN GOING. PATIENT IS UP AD GURINDER TO BEDSIDE COMMODE, HAS HAD SEVERAL BOWEL MOVEMENTS TODAY. CALL LIGHT IS IN REACH, WILL CONTINUE TO MONITOR.
[2017-11-25 20:00] VITALS: BP 142/89
--- NOTE | 2017-11-26 05:10 | NUR ---
PT SLEPT AT INTERVALS DURING THE NIGHT, IV TPN RUNNING, COLONIC TUBE IN PLACE, FLUSHED WITH WATER AND AIR LAST NIGHT, PUT ON HOLD, THEN SUCTION RESTARTED. ALSO HAD BM IN BSC WITH SBA. PT PLEASANT. PICC LINE DECLOTTED THIS AM WITH ACTIVASE. CALL LIGHT IN REACH, WILL CONTINUE TO MONITOR
[2017-11-26 06:07] LABS: HEMATOCRIT 42.2 % (42.0-52.0); MCH 30.5 pg (26.0-34.0); MCHC 33.3 g/dL (28.0-37.0); MCV 91.6 fL (80.0-100.0); MPV 9.7 fl. (7.2-11.1); RBC 4.6 mil/uL (4.50-6.00); RDW-CV 13.9 % (10.5-14.5); WBC 8.6 thou/uL (4.0-11.0)
[2017-11-26 06:23] LABS: CALCIUM 8.1 mg/dL (8.5-10.1); CREATININE 0.6 mg/dL (0.6-1.3); POTASSIUM 3.9 mmol/L (3.5-5.1)
[2017-11-26 08:15] VITALS: BP 122/83
[2017-11-26 16:58] VITALS: BP 151/87
--- NOTE | 2017-11-26 17:49 | NUR ---
PATIENT HAS BEEN A/O X 4 THIS SHIFT. HAS DENIED PAIN OR DISCOMFORT. TPN INFUSING PER LEFT UPPER ARM PICC LINE. CONTINUES ON IV ANTIBIOTICS. COLONIC DECOMPRESSION TUBE REMAINS IN PLACE TO LOW INTERMITTENT SUCTION, DRAINING WELL. FLUSHED PER ORDERS WITH 250ML OF WARM WATER AND 60ML OF AIR AND CLAMPED FOR 30 MINUTES. PATIENT AMBULATING IN HALLS X 2 THIS SHIFT WITH . TOLERATING CLEAR LIQUIDS WITHOUT ANY N/V. TO HAVE REPEAT LABS IN AM AND REPEAT ABD XRAY. HOURLY ROUNDING COMPLETED. CALL LIGHT WITHIN REACH. WILL CONTINUE WITH PLAN OF CARE.
[2017-11-26 20:45] VITALS: BP 145/96
[2017-11-27 05:08] LABS: HEMATOCRIT 42.7 % (42.0-52.0); HEMOGLOBIN 14.1 gm/dL (14.0-18.0); MCH 30.3 pg (26.0-34.0); MCHC 32.9 g/dL (28.0-37.0); MCV 92.1 fL (80.0-100.0); MPV 10.3 fl. (7.2-11.1); RBC 4.64 mil/uL (4.50-6.00); RDW-CV 13.9 % (10.5-14.5); WBC 8.4 thou/uL (4.0-11.0)
[2017-11-27 05:25] LABS: CALCIUM 8.3 mg/dL (8.5-10.1); CREATININE 0.6 mg/dL (0.6-1.3); MAGNESIUM 2.2 mg/dL (1.8-2.4); PHOSPHORUS* 3.6 mg/dL (2.5-4.9); POTASSIUM 3.8 mmol/L (3.5-5.1)
--- NOTE | 2017-11-27 05:40 | NUR ---
PT SLEPT MOST OF SHIFT. ASSESSMENT DOCUMENTED. MEDS GIVEN PER E-NOV. PICC PATENT, TPN RUNNING. NO REPORTS OF PAIN OR NAUSEA. COLONIC DECOMPRESSION TUBE REMAINED HOOKED TO SUCTION, OUTPUT CHARTED. WILL CONTINUE WITH PLAN OF CARE.
[2017-11-27 08:30] VITALS: BP 138/91
--- NOTE | 2017-11-27 09:58 | PROC ---
[facility] [address] [place] [address] PROCEDURE REPORT Name: AJCK AGUILAR Room: [address] IN M.R.#: [id number] Admission: 11/16/17 Attend Phys: Mauro Singer DO Discharge: Date of : 62 Report #: [id number] THIS REPORT FOR: //name// CC: Mauro Singer DO CHRISTIN physician/PCP Rodney Dietrich DATE OF SERVICE: 11/24/2017 PROCEDURE PERFORMED: Colonoscopy with terminal ileoscopy plus decompression of colon followed by placement of 14-[place] colonic decompression tube plus spot ink injection of the proximal and distal extents of diverticulitis. SEDATION USED: General endotracheal anesthesia -- procedure lasted 75 minutes. SEDATION USED: General endotracheal anesthesia. SPECIMEN RETRIEVED: None. INDICATIONS: The patient is a pleasant 57-year-old white male who has been battling suspected complicated sigmoid diverticulitis with associated diverticular stricture and obstruction, who presents today for flexible sigmoidoscopy, possible colonoscopy to evaluate for why he has had incomplete response to antibiotics plus bowel rest. He is being treated for diverticulitis since late October with antibiotics and has had persistent problems with abdominal distention, a suspected small bowel and colonic ileus versus distal obstruction. Prior to consideration for surgical intervention, Dr. Singer wanted to determine what was going on within the sigmoid colon to determine what would be the next step in his care. He and I discussed the patient's case in detail and I was agreeable to the same. The patient understood the risks of possible perforation from the endoscopy given the fact that he may have complicated diverticulitis and he was agreeable to proceed. See progress notes and other notes for further details. PHYSICAL EXAMINATION: GENERAL: Reveals a pleasant 57-year-old gentleman who has currently an NG tube in place. He is pale. He appears to be ill, but not toxic. CARDIOPULMONARY: Revealed a regular rate and rhythm. LUNGS: Clear. ABDOMEN: Distended and tympanic compatible with colonic and small bowel distention. His most recent CT scan was reviewed from November 23, which revealed dilated loops of small bowel and colon all the way to [place] [address] PROCEDURE REPORT Name: JACK AGUILAR Room: [address] IN [facility]#: [id number] Admission: 11/16/17 Attend Phys: Mauro Singer, DO Discharge: Date of : 62 Report #: [id number] sigmoid stricture with thickening of the sigmoid colon and pericolonic stranding with possible small abscess outside the wall of the sigmoid colon. DESCRIPTION OF PROCEDURE: The patient was then brought to the operating room and placed in the supine position with oximetry, blood pressure and cardiac monitoring and the procedure was performed under general endotracheal anesthesia with the thought that he may need to undergo surgical intervention shortly thereafter. This is also being done under general endotracheal anesthesia as we are attempting to decompress his colon and possibly place a colonic decompression tube. Once the patient was intubated and sedated, the Olympus pediatric colonoscope was advanced under direct vision through the rectum to the level of the cecum. The patient had about 8 cm segment of very thickened sigmoid colon with edematous folds, purulent discharge within the same followed by dilation of the colon proximal to the same. This is all inflammatory stricture with continued inflammation and infection. The colon proximal to the inflammatory sigmoid stricture was dilated and was able to be decompressed. The scope was advanced all the way over to the level of the cecum, which was identified by the ileocecal valve and the appendiceal orifice. The patient had a little bit of residual stool within the colon, but overall the bowel preparation, the bowel was relatively well prepped. I was able to intubate the distal terminal ileum and evaluate the same and there did not appear to be evidence for any Crohn's. The cecum, ascending, transverse and descending colon appeared normal. Before placing colonic decompression tube, I then spot ink injected just 4-5 cm proximal to the sigmoid stricture and the same distally from the sigmoid stricture. This delineated the extent of the diverticular disease on either side. I then went back over to the cecum, placed a guidewire through the scope and then slowly decompressed the colon as I kept the guidewire in place. Once the scope was withdrawn, a 14-[place] colonic decompression tube was then advanced under fluoroscopic guidance to level of the cecum. The patient's cecum is in unusual position and is closely to the periumbilical area. This was not noted under fluoroscopy. I was able to get the colonic decompression tube all the way over to the level of cecum. The guidewire and stiffener within the colonic decompression tube was then able to be removed. Further decompression of the colon was able to be performed with suction through the catheter. The procedure was completed and the patient was extubated and sent to recovery room in stable condition. IMPRESSION: 1. Benign 7-8 cm inflammatory sigmoid stricture due to diverticulitis with secondary dilation of the proximal colon secondary to the same. 2. Status post spot ink injection to delineate the proximal and distal extents of sigmoid diverticulosis with diverticulitis and the associated inflammatory stricture. 3. Successful decompression of the entire colon plus placement of a 14-[place] [address] [address] PROCEDURE REPORT Name: JACK AGUILAR Room: [address] IN [facility]#: [id number] Admission: 11/16/17 Attend Phys: Mauro Singer, DO Discharge: Date of : 62 Report #: [id number] colonic decompression tube to level of the cecum. 4. Otherwise, essentially normal colonoscopy and terminal ileoscopy with adequate bowel prep being noted at this time. RECOMMENDATIONS: 1. Check a stat 2-view abdomen to ensure there is no evidence for free air plus to evaluate for any possible air within the bladder since there was some question as to whether or not the patient had a colovesical fistula. 2. If his x-ray looks good, we can consider removing the NG tube and allow the patient to begin a clear liquid diet. 3. We will place the CDT (colonic decompression tube) to low intermittent suction and flush it with 250 mL of warm tap water followed by 50 mL of air every 4 hours, wait 30 minutes to resume the CDT to LIS. 4. Continue the patient on TPN at this point in time. 5. We will consult Infectious Disease again to ensure that this antibiotic regimen does not need to be adjusted for continued evidence of sigmoid diverticulitis. 6. We will proceed with surgical intervention on Tuesday by Dr. Singer with either laparoscopic resection with possible end-to-end anastomosis or placement of a temporary colostomy with Vik pouch with eventual takedown of the same. Both Dr. Singer and Rory discussed findings and the plans with the patient and his family as well. This procedure allowed us to give the patient the best chance at laparoscopic resection of his sigmoid colon with possible reanastomosis. <ELECTRONICALLY SIGNED> By: Erick Crow DO 11/27/17 0958 [id number] 2046Erick Crow DO /nt
[2017-11-27 16:57] VITALS: BP 133/95
--- NOTE | 2017-11-27 19:42 | NUR ---
PATIENT HAS BEEN A/O X 4 THIS SHIFT. HAS DENIED PAIN OR N/V. TPN AND IV ANTIBIOTICS INFUSING PER PICC LINE THIS SHIFT. COLONIC DECOMPRESSION TUBE REMAINS IN PLACE TO LOW INTERMITTENT SUCTION. FLUSHED PER ORDERS THIS SHIFT. PATIENT AMBULATING IN HALLS WHEN CDT IS OFF OF SUCTION. TOLERATING CLEAR LIQUIDS. AT BEDSIDE. HOURLY ROUNDING COMPLETED. CALL LIGHT WITHIN REACH. WILL CONTINUE WITH PLAN OF CARE.
[2017-11-27 20:45] VITALS: BP 138/95
--- NOTE | 2017-11-28 06:18 | NUR ---
PT SLEPT MOST OF SHIFT. ASSESSMENT DOCUMENTED. MEDS GIVEN PER E-NOV. PICC PATENT, TPN RUNNING. NO REPORTS OF PAIN OR NAUSEA. COLONIC DECOMPRESSION TUBE FLUSHED THIS SHIFT, TUBE ON LOW INTERMITANT SUCTION WHEN NOT FLUSHING. WILL CONTINUE WITH PLAN OF CARE.
[2017-11-28 08:00] VITALS: BP 143/86
--- NOTE | 2017-11-28 15:07 | CON ---
[address] [address] CONSULTATION Name: JACK AGUILAR Room: [address] IN M.R.#: [id number] Admission: 11/16/17 Attend Phys: Mauro Singer DO Discharge: Date of : 62 Report #: [id number] THIS REPORT FOR: //name// CC: Mauro WALLER physician/PCP Niyah Montano DATE OF SERVICE: 11/21/2017 ADDENDUM TO CONSULT #[id number] I have personally seen and examined the patient and reviewed labs and imaging studies. The patient with history of diverticular abscess and diverticulitis per CT on 11/16/2017. He appears to have diffuse small bowel dilatation and air fluid levels suggestive of ileus. We will consider a motility agent including erythromycin and Reglan. He has a NG tube in place to intermittent suction. We will follow up with KUB and make further recommendation. <ELECTRONICALLY SIGNED> By: Mary Medina MD 11/28/17 1507 1522 1529Mary Medina MD /nt
--- NOTE | 2017-11-28 15:07 | CON ---
[facility] [address] [place] [address] CONSULTATION Name: JACK AGUILAR Room: [address] IN .R.#: [id number] Admission: 11/16/17 Attend Phys: Mauro Singer DO Discharge: Date of : 62 Report #: [id number] THIS REPORT FOR: //name// CC: Mauro WALLER physician/PCP Rodney Dietrich DICTATED BY: Ilana Good [facility] DATE OF SERVICE: 11/21/2017 Please note at the time of this dictation, the patient was seen and physically examined by myself. REASON FOR CONSULTATION: Possibly decompression tube for colonic distention. HISTORY OF PRESENT ILLNESS: This is a 57-year-old male presented to the Emergency Room after being sent over by his general surgeon's office for routine followup. The patient had his drain removed and noticed copious bleeding resulted. The patient got a little lightheaded, pale, diaphoretic, and prompting him to come over. He also had been noted that his abdomen has increased distention over the last 3 days without a bowel movement as well. Prior to the patient had an abscess drained for a diverticular abscess that was noted at the end of October in which it has resolved on CT at the time. The patient has not had a bowel movement for several days and he states he was taking doses of MiraLax without any result. He also considered magnesium citrate, but had never done so. He was still taking oral Augmentin at the time that he was admitted. The patient states he has had a colonoscopy done about 6 years ago in [facility]. He is not for sure if it was [facility] or [facility] and we will request those records. He states everything was normal at that time. ALLERGIES: No known drug allergies. MEDICATIONS FROM HOME: Has just been Augmentin. PAST MEDICAL HISTORY: Just his diverticular abscess and a history of some heart disease. PAST SURGICAL HISTORY: He had a drain placed that has been since removed. FAMILY HISTORY: Mother had cirrhosis requiring transplant. SOCIAL HISTORY: Alcohol socially. Denies any tobacco use for the last 3 weeks. He has now since quit or any illegal [place] [address] CONSULTATION Name: JEFFJACK Esme Room: [address] IN [facility]#: [id number] Admission: 11/16/17 Attend Phys: Mauro Singer, DO Discharge: Date of : 62 Report #: [id number] REVIEW OF SYSTEMS: Twelve-point review of systems is essentially negative except what is mentioned in the HPI. PHYSICAL EXAMINATION: VITAL SIGNS: Temperature 36.7, pulse 85, respirations 18, blood pressure 155/93. HEART: Regular rate and rhythm. LUNGS: Clear. ABDOMEN: Soft, distended with some generalized tenderness noted to palpation. He has an NG to intermittent low suction draining bilious material, about 500 out this a.m. LABORATORY DATA: White count is 12.6, hemoglobin is 14.2, platelets is 447, hematocrit is 43.3. Sodium is 144, potassium is 3.1, chloride 109, CO2 24, BUN is 12, creatinine is 0.7, GFR is 117 and glucose is 100. IMAGING: CT of the abdomen and pelvis yesterday showed colon diffuse fluid throughout the small bowel. There is diffuse air and fluid throughout the colon. There is thickening of the sigmoid colon suggesting diffuse colitis and similar appearance was seen on the prior exams. There are no current findings for perforation or abscess formation. Small bowel loops are 3.6 cm in size. An NG tube is placed through a sliding type hiatal hernia noted. Abdominal series this morning showed stable bowel gas pattern concerning for distal colonic obstruction related to the patient's sigmoid colitis and narrowing on the CT. IMPRESSION: 1. Abdominal pain. 2. Small-bowel obstruction. 3. Colonic distention. 4. History of diverticular abscess with recent drain removal. PLAN: 1. We will continue the NG to intermittent suction. 2. Obtain records from [facility], [facility] and [facility]. 3. We will start motility agent first to see if this will help with his colonic distention since he is currently passing some gas at the present time. 4. Would prefer to hold off on colonic decompression due to his recent diverticular abscess. 5. We will obtain abdominal x-ray in a.m. Thank you for allowing us to participate in this patient's care. Please do not hesitate to call with any questions in regard to this consult. ADDENDUM TO CONSULT #[id number] [place] [address] CONSULTATION Name: JACK AGUILAR Room: [address] IN [facility]#: [id number] Admission: 11/16/17 Attend Phys: Mauro Singer, DO Discharge: Date of : 62 Report #: [id number] I have personally seen and examined the patient and reviewed labs and imaging studies. The patient with history of diverticular abscess and diverticulitis per CT on 11/16/2017. He appears to have diffuse small bowel dilatation and air fluid levels suggestive of ileus. We will consider a motility agent including erythromycin and Reglan. He has a NG tube in place to intermittent suction. We will follow up with KUB and make further recommendation. <ELECTRONICALLY SIGNED> By: Mary Medina MD 11/28/17 1507 1208 1222Mary Medina MD /nt
[2017-11-28 16:00] VITALS: BP 129/83
--- NOTE | 2017-11-28 16:43 | NUR ---
Pt to have surgery tomorrow at 11 am. SW to continue to follow.
--- NOTE | 2017-11-28 17:36 | NUR ---
PT RESTING IN BED THROUGHOUT SHIFT. COLONIC DECOMPRESSION TUBE IN PLACE,FLUSED ORDERED. SUCTION TO LIS. PT TOLERATING CLEAR LIQUID DIET. TPN INFUSING. DENIES PAIN. PLAN FOR SURGERY IN AM
[2017-11-29 00:15] VITALS: BP 147/94
[2017-11-29 04:57] LABS: HEMOGLOBIN 14.4 gm/dL (14.0-18.0); MCHC 34.4 g/dL (28.0-37.0); MCV 90.1 fL (80.0-100.0); MPV 10.6 fl. (7.2-11.1); RBC 4.66 mil/uL (4.50-6.00); WBC 8.3 thou/uL (4.0-11.0)
[2017-11-29 05:00] LABS: CALCIUM 8.4 mg/dL (8.5-10.1); CREATININE 0.7 mg/dL (0.6-1.3); MAGNESIUM 2.2 mg/dL (1.8-2.4); PHOSPHORUS* 3.9 mg/dL (2.5-4.9); POTASSIUM 3.8 mmol/L (3.5-5.1)
--- NOTE | 2017-11-29 06:20 | NUR ---
PT SLEPT MOST OF SHIFT. ASSESSMENT DOCUMENTED. MEDS GIVEN PER E-MAR. PICC PATENT, TPN RUNNING. NO REPORTS OF PAIN OR NAUSEA. COLONIC DECOMRESSION TUBE HOOKED TO SUCTION. WILL CONTINUE WITH PLAN OF CARE.
[2017-11-29 07:50] VITALS: BP 144/79
[2017-11-29 10:39] VITALS: BP 140/88
[2017-11-29 15:40] VITALS: BP 135/80
--- NOTE | 2017-11-29 16:51 | NUR ---
PATIENT A&OX4, ROOM AIR, IV LEFT UPPER ARM PICC DOUBLE LUMEN. UP AD GURINDER, STEADY GIAT. HAD A BOWEL RESECTION TODAY, PART OF LARGE INTESTINE REMOVED. PATIENT NOW ON 2L O2 VIA NC, CAPNO MONITOR. C/O ABD PAIN, PARTIAL RELIEF WITH MEDICATION. COLONIC DECOMPRESSION TUBE D/C. JODI MAN TO RLQ POST SURGERY, GREAT OUTPUT. OTERO CATHETER POST SURGERY, GREAT OUTPUT. 3 INSICIONS TO ABD, TO BE CHANGE 3 DAYS POST OP THEN DAILY AND NEEDED. NO OTHER CONCERNS AT THIS TIME. APPROPRAITE AND COOPORATIVE WITH CARE.
--- NOTE | 2017-11-30 00:56 | NUR ---
ALERT AND ORIENTED X 4, CONT. TPN VIA PICC LT UPPER ARM. CONT. SCHEDULED PAIN MEDS. JODI DRAIN RT ABD. OTERO TO D/D. CALL LIGHT IN REACH, BED IN LOW POSITION. NO SIGN OF DISTRESS.
[2017-11-30 04:37] LABS: HEMATOCRIT 41.6 % (42.0-52.0); MCH 30.4 pg (26.0-34.0); MCHC 33.7 g/dL (28.0-37.0); MCV 90.2 fL (80.0-100.0); MPV 10.7 fl. (7.2-11.1); NUCLEATED RBCS 0 /100WBC; PLATELET COUNT* 203 thou/uL (150-400); RBC 4.61 mil/uL (4.50-6.00); RDW-CV 13.9 % (10.5-14.5)
[2017-11-30 05:02] LABS: CALCIUM 8.6 mg/dL (8.5-10.1); CREATININE 0.6 mg/dL (0.6-1.3); POTASSIUM 4.6 mmol/L (3.5-5.1)
[2017-11-30 05:41] LABS: ANISOCYTOSIS 1+; PLATELET ESTIMATE ADEQUATE; POIKILOCYTOSIS 1+
[2017-11-30 07:50] VITALS: BP 137/71
[2017-11-30 12:50] VITALS: BP 139/81
--- NOTE | 2017-11-30 16:13 | NUR ---
PATIENT A&OX4, ROOM AIR, IV LEFT UPPER ARM PICC DOUBLE LUMEN. UP AD GURINDER, STEADY GAIT. OTERO CATH, DISCONTINUED, ABLE TO URINATE ON OWN. IV FLUIDS DISCONTINUED, TPN DISCONTINUED. C/O ABD PAIN, PARTIAL RELIEF WITH MEDICATION. NO C/O N/V. C/O HEARTBURN, HICCUPS, BELTCHING, NEW ORDERS FOR PRN TUMS, RELIEF NOTED WITH MEDICATION. UP AMBULATING IN [address], TOOK 2 LAPS AROUND UNIT. JODI DRAINPAULAINING WELL, SMALL DIME SIZE CLOT NOTED IN BOWL OF MAGDA, STILL PATTENT. NO OTHER CONCERNS AT THIS TIME. APPROPRAITE AND COOPORATIVE WITH CARE.
[2017-11-30 16:17] VITALS: BP 137/75
[2017-11-30 20:00] VITALS: BP 161/87
[2017-12-01] VITALS: BP 123/83
[2017-12-01 05:18] VITALS: BP 135/84
--- NOTE | 2017-12-01 06:01 | NUR ---
PATIENT SLEPT PART OF THE NIGHT. TPN AND IV FLUIDS WERE DISCONTINUED PICC LINE IS NOW SALINE LOCKED. PATIENT WAS GIVEN MORPHINE ONCE IN ADDITION TO SCHEDULED PAIN MEDS. PATIENT STATES HE HAD THREE LIQUID STOOLS THIS SHIFT. 3 LAP SITE DRESSINGS REMAIN INTACT WITH JODI DRAIN TO RLQ DRAINING SEROUSANGUINOUS DRAINAGE. WILL CONTINUE TO MONITOR.
[2017-12-01 07:45] VITALS: BP 140/82
[2017-12-01 09:40] LABS: ABSOLUTE EOSINOPHILS 0.3 thou/uL (0.0-0.7); ABSOLUTE LYMPHOCYTES 2.4 thou/uL (0.8-5.3); ABSOLUTE MONOCYTES 1.3 thou/uL (0.0-1.2); ABSOLUTE NEUTROPHILS 7.7 thou/uL (1.6-8.1); BASOPHILS 0.4 %; EOSINOPHILS 2.7 %; HEMOGLOBIN 14.5 gm/dL (14.0-18.0); LYMPHOCYTES 20.3 %; MCH 30.7 pg (26.0-34.0); MCHC 33.8 g/dL (28.0-37.0); MCV 90.8 fL (80.0-100.0); MONOCYTES 11.1 %; NUCLEATED RBCS 0 /100WBC; PLATELET COUNT* 198 thou/uL (150-400); POLYS 65.5 %; RBC 4.73 mil/uL (4.50-6.00); RDW-CV 13.9 % (10.5-14.5); WBC 11.7 thou/uL (4.0-11.0)
[2017-12-01 09:45] LABS: CALCIUM 9.3 mg/dL (8.5-10.1); CREATININE 0.7 mg/dL (0.6-1.3); POTASSIUM 3.8 mmol/L (3.5-5.1)
--- NOTE | 2017-12-01 12:19 | NUR ---
Pt up walking around the unit with his . Possible dc home with tomorrow. SW to continue to follow to assist with safe dc planning.
--- NOTE | 2017-12-01 15:32 | S ---
[address] [address] SURGICAL PATH RPT PROCEDURE Name: JACK RAJAN Esme Room: [address] IN [facility].#: [id number] Admission: 11/16/17 Date of : 62 Discharge: Report #: [id number] Path Case #: [id number] PATHOLOGY REPORT COLLECTION DATE: 11/29/2017 RECEIVED DATE: 11/30/2017 SUBMITTING PHYS: Dr. Mauro Singer OTHER PHYS: Dr. Niyah Montano SPECIMEN(S) RECEIVED: A.Sigmoid colon * * * * * * * * * * * * FINAL DIAGNOSIS: Sigmoid colon: - Segment of benign colon with marked diverticular disease and acute and chronic diverticulitis with evidence of perforation including prominent foreign body type granulomatous response, fibrosis, and acute serositis. (RANDY:chucho; 12/01/2017) PATHOLOGIST: Saleem Sen M.D. REPORT ELECTRONICALLY SIGNED BY: Saleem Sen M.D. DATE/TIME: 12/01/2017 15:32 * * * * * * * * * * * * GROSS PATHOLOGY: The specimen is received in formalin, labeled "Jack Rajan, sigmoid colon," and consists of an unoriented segment of colon measuring 18.1 cm and ranging from 1.9-5.2 cm in diameter. Both margins are stapled closed. There is attached pericolic fat measuring up to 7.7 cm. The serosal surface is brown with areas of marked adhesions and exudate measuring up to 5.5 cm in greatest dimension. The specimen is opened along the antimesenteric line to reveal pink-dinh mucosal folds with extreme narrowing of the mucosa, 2.0 cm in nearest stapled resection margin. The circumference ranges from less than 1.0 cm to 4.0 cm. Serial sectioning reveals multiple diverticula ranging from 0.5 cm 1.3 cm with focal areas of abscess formation. No masses are identified. Sectioning the attached pericolic fat reveals no grossly identifiable lymph nodes. Stone [place] sections are submitted as follows: A1-A2: Stapled resection margin A3-A5: Diverticula A6: Unremarkable mucosa (SDY; 11/30/2017) [place] [address] SURGICAL PATH RPT PROCEDURE Name: JACK RAJAN Room: [address] IN [facility]#: [id number] Admission: 11/16/17 Date of : 62 Discharge: Report #: [id number] Path Case #: [id number] CLINICAL HISTORY: Diverticulitis INITIAL CPT CODE(S): A; 62364 Professional services performed by [facility] at [address] [address] [facility] by [facility] at [address] [place] [address], [facility] [address] [place] [address]. [facility] [address] [place] [address] PHONE: [phone] DIRECTOR: Ariel W. Arvind, M.D. * * * END OF REPORT * * *
[2017-12-01 16:37] VITALS: BP 132/75
--- NOTE | 2017-12-01 17:34 | NUR ---
PATIENT IS ALERT AND ORIENTED TODAY VERY PLEASANT. UP AD GURINDER AND WALKS THE HALLWAYS FREQUENTLY. FAMILY AT BEDSIDE MOST OF THE DAY. VITAL SIGNS STABLE ON ROOM AIR. JODI IN LOWER RIGHT QUADRANT DRAINING SEROUS DRAINAGE. NO COMPLAINTS OF ANY PAIN TODAY. TOLERATED FULL LIQUIDS AT LUNCH TODAY WITH NO PROBLEMS. CALL LIGHT IS IN REACH, WILL CONTINUE TO MONITOR.
[2017-12-01 20:30] VITALS: BP 105/64
[2017-12-02 04:34] LABS: ABSOLUTE BASOPHILS 0.1 thou/uL (0.0-0.2); ABSOLUTE EOSINOPHILS 0.1 thou/uL (0.0-0.7); ABSOLUTE LYMPHOCYTES 0.7 thou/uL (0.8-5.3); ABSOLUTE MONOCYTES 0.5 thou/uL (0.0-1.2); ABSOLUTE NEUTROPHILS 4.8 thou/uL (1.6-8.1); BASOPHILS 0.9 %; EOSINOPHILS 2.3 %; HEMATOCRIT 36.3 % (42.0-52.0); LYMPHOCYTES 11.2 %; MCH 30.5 pg (26.0-34.0); MCHC 34.3 g/dL (28.0-37.0); MCV 88.9 fL (80.0-100.0); MONOCYTES 7.8 %; MPV 7.9 fl. (7.2-11.1); NUCLEATED RBCS 0 /100WBC; POLYS 77.8 %; RBC 4.08 mil/uL (4.50-6.00); RDW-CV 14.8 % (10.5-14.5); WBC 6.2 thou/uL (4.0-11.0)
[2017-12-02 04:41] LABS: CALCIUM 8.8 mg/dL (8.5-10.1); CREATININE 0.6 mg/dL (0.6-1.3); MAGNESIUM 1.9 mg/dL (1.8-2.4); PHOSPHORUS* 5.6 mg/dL (2.5-4.9); POTASSIUM 4.3 mmol/L (3.5-5.1)
[2017-12-02 04:58] LABS: HEMOGLOBIN 12.4 gm/dL (14.0-18.0); PLATELET COUNT* 114 thou/uL (150-400)
--- NOTE | 2017-12-02 05:14 | NUR ---
PT SLEPT AT INTERVALS, PICC SALINE LOCKED, UP AMBULATING HALLS AT HS, SCHEDULED TORADOL GIVEN, DENIED PAIN, INCISIONS C/D/I, CALL LIGHT IN REACH, WILL CONTINUE TO MONITOR
[2017-12-02 09:30] VITALS: BP 134/82
[2017-12-02 14:22] VITALS: BP 134/82
--- NOTE | 2017-12-02 14:52 | NUR ---
Pt to dc home with today. No dc needs expressed.
[2017-12-02 15:54] VITALS: BP 134/82
--- NOTE | 2017-12-02 16:01 | NUR ---
PATIENT HAS BEEN ALERT AND ORIENTED TODAY VERY PLEASANT. UP AD GURINDER IN ROOM AND WALKING THE HALLWAYS. FAMILY IS AT BEDSIDE TODAY. NO COMPLAINTS OF ANY PAIN TODAY. APPETITE IS GOOD AND IS TOERATING SOLIDS WELL. VITAL SIGNS HAVE BEEN STABLE ON ROOM AIR. PATIENT IS DISCHARGED TO HOME WITH AN APPT WITH [facility] NEXT WEEK. PROVIDER PULLED PATIENT PICC LINE AND JODI DRAIN TODAY AT BEDSIDE. PATIENT AMBULATED OUT WITH TO HOME.
--- NOTE | 2018-01-11 09:47 | OP ---
[facility] [address] [place] [address] OPERATIVE REPORT Name: JACK AGUILAR Room: [address]#: [id number] Admission: 11/16/17 Attend Phys: Mauro Singer DO Discharge: 12/02/17 Date of : 62 Report #: [id number] THIS REPORT FOR: //name// CC: Mauro Singer [facility] physician/PCP Erick Dietrich Patient's Chart DATE OF SERVICE: 11/29/2017 PREOPERATIVE DIAGNOSIS: Sigmoid diverticulitis with previous history of pericolonic abscesses that were drained percutaneously and also colonic obstruction. POSTOPERATIVE DIAGNOSIS: Sigmoid diverticulitis with previous history of pericolonic abscesses that were drained percutaneously and also colonic obstruction. PROCEDURE: Laparoscopic sigmoid colectomy with end-to-end anastomosis and takedown of the splenic flexure. SURGEON: Mauro Singer DO DUST OPERATOR: Thomas Ram DO SECOND BUSINESS SOLUTIONS ANALYST: Student, Dr. Yohannes Estes, MS3. ANESTHESIA: General endotracheal. ESTIMATED BLOOD LOSS: Less than 50 mL. COMPLICATIONS: None. SPECIMEN REMOVED: Sigmoid colon and anastomotic rings. INDICATIONS FOR PROCEDURE: This is a 57-year-old male who initially presented to the hospital with acute diverticulitis. He was noted to have pericolonic abscesses which were percutaneously drained. The patient did well and was discharged from the hospital with a percutaneous drain in place. He was then seen approximately a week later after CT scan had been performed which showed resolution of at least one of the abscesses which had been drained by the percutaneous drain. The drain was then removed in the office. Immediately after removing the drain, the patient had a large amount of bleeding from the drain site. He was immediately transferred from my office to the hospital via ambulance. He then developed a colonic obstruction, [place] [address] OPERATIVE REPORT Name: JACK AGUILAR Room: [address]#: [id number] Admission: 11/16/17 Attend Phys: Mauro Singer, DO Discharge: 12/02/17 Date of : 62 Report #: [id number] not related to any bleeding that was identified, but he did become more and more distended. Eventually, he required a nasogastric tube and then eventually Dr. Vance with Gastroenterology performed a colonoscopy and placed a decompressing rectal tube all the way up into the right colon. Following this, the patient was given TPN and eventually today was taken to Surgery for the above procedure. DESCRIPTION OF PROCEDURE: After obtaining proper consents and discussing risks and complications with the patient including bleeding, infection, injury to other organs, possibility of bowel obstruction, possibility of ileostomy or colostomy, possibility of leak or stricture and numerous other risks and complications were discussed with the patient. He was then taken to the operating room, laid on the supine position, administered general anesthesia. He was then placed in lithotomy position. A Walters catheter was inserted. We then removed the patient's long rectal tube which had been placed by Gastroenterology. He was then prepped and draped in the usual fashion. A timeout was performed. We confirmed the appropriate patient and procedure. All necessary equipment was in the room. He had been given antibiotics preoperatively. Sequential compression devices were in place. We then made a small supraumbilical skin incision with #11 scalpel blade. This was carried down through the skin into the subcutaneous tissue using electrocautery for hemostasis. Once the fascia was encountered, it was incised along its fibers, grasped and elevated with [facility] clamps and divided further. The peritoneum was then bluntly opened using a hemostat. A finger was placed inside the peritoneal cavity to assure that there were no kurt-incisional adhesions. Next, 2-0 Vicryl sutures were placed in a phoady-ix-amoud fashion to secure the Hayes trocar, which was then inserted and insufflation was begun. Once insufflation was complete, full visual inspection of the anterior abdominal organs was performed. This immediately revealed an area that appeared to be somewhat inflamed in the sigmoid colon, which was attached to the anterior abdominal wall. There were no other gross abnormalities identified. The liver appeared normal. The stomach appeared normal. The small bowel appeared normal. The colon which could be visualized appeared to be decompressed and showed no signs of obstruction or inflammation other than this one area in the left lower quadrant. At this point, we placed a 12 mm trocar in the right lower quadrant. Another 5 mm trocar was placed in the right upper quadrant. I was then able to bluntly dissect the colon down off of the abdominal wall. This was done primarily with bowel graspers. We also used electrocautery to assure hemostasis. I also used suction device to bluntly dissect this down. There was no evidence of this being attached to the bladder. It was actually fairly well away from where the bladder was and there was no evidence of any abscesses identified during this portion of the dissection or any other portion of the dissection for that matter. Once the colon was freed from the abdominal wall, I then took down the white line of Toldt along the left pericolic gutter all the way up to the splenic flexure. When I could no longer visualize this area well from the lateral aspect, I then placed another 5 mm port in the subxiphoid [facility] [address] [place] [address] OPERATIVE REPORT Name: JACK AGUILAR Room: [address] IN M.R.#: [id number] Admission: 11/16/17 Attend Phys: Mauro Singer DO Discharge: 12/02/17 Date of : 62 Report #: [id number] position. I was then able to elevate the omentum. We opened the lesser sac and then we were able to retract the transverse colon inferiorly and take down the entire splenic flexure with ease. Keeping well away from the colon, I did use the LigaSure device in order to take down the flexure without evidence of any bleeding and again staying well away from the colon. Once the splenic flexure was completely freed and mobilized, we then continued our dissection inferiorly all the way down to the area of inflammation. This area was adherent to the left abdominal wall and using blunt dissection as well as the LigaSure, I was able to take this down, staying well away from the ureter. We did actually identify the ureter and kept it out of harm's way. I then dissected all the way down to the peritoneal reflection laterally. We then elevated the colon and scored the mesentery medially from well below the area of inflammation up to an area that had been marked during colonoscopy with a tattoo. I then opened an avascular window in the mesentery and then dissected inferiorly and distally until we reached the distal tattooed area which was just above the peritoneal reflection. I then used the LigaSure also to take down the inferior mesenteric artery and vein and then dissect the mesentery all the way up to the proximal tattoo marked. At this point, we inserted a RICKEY 60 mm purple load which was fired across the distal area at the level of the tattoo freda, which was at the peritoneal reflection. Once this was done, we then were easily able to bring down the proximal tattooed area in order to perform the anastomosis. At this point, we stopped the insufflation. We made the supraumbilical incision slightly larger and then inserted an Pranay wound retractor. I was then able to extract the colon through this incision, We then divided the proximal resection margin just proximal to the tattooed freda in area of completely soft and nondiseased colon. The distal area was also noted to be completely free of any disease and was noninflamed as well and again we saw no abscess or any areas of fistula formation or evidence of perforation other than the colon being adherent to the abdominal wall. At this point, we elected to perform a primary end-to-end anastomosis. We opened the proximal colon and used EEA sizers and determined that we would use a 31 mm EEA. The anvil was then dropped into the colon. The colon was then closed using a TA 60 stapling device. The anvil was then brought out through the anterior tenia coli. We then dropped this back into the abdominal cavity, reinsufflated the abdomen. The rectal stump was then checked for any leak using a bubble test. There was none noted. We then used EEA sizers to dilate the anus and rectum to allow for placement of the 31 mm EEA which was then inserted. The spike was opened anterior to the staple line. We then attached the anvil assuring that the colon was not rotated or twisted. We attached the anvil to the spike. The EEA was then closed and anastomosis was performed. Once the anastomosis was performed, the anastomotic rings were checked and found to be complete. We then bubble tested the anastomosis to assure there was no leak. I also used the envy feature of our laparoscope in which we gave a 5 mg dose of indocyanine green intravenously. We then used the envy feature to visualize the vasculature and assured that there was good blood flow to the anastomosis. This revealed excellent blood flow within approximately 15-30 seconds after giving the indocyanine green. At this point, [place] [address] OPERATIVE REPORT Name: JACK AGUILAR Room: [address]#: [id number] Admission: 11/16/17 Attend Phys: Mauro Singer DO Discharge: 12/02/17 Date of : 62 Report #: [id number] we copiously irrigated the abdominal cavity. I did place a 19-Niuean Ilia-Rosas drain through the right lower quadrant trocar site. This was sutured in place using 2-0 nylon suture. The remaining ports were all removed under direct vision. We then closed the fascia of the supraumbilical incision using a running #1 loop PDS suture. The other port sites were closed using 4-0 Monocryl subcuticular stitches. The incision of the supraumbilical region was closed using 3-0 Vicryl suture for the subcutaneous tissue and then 4-0 Monocryl for the skin. The wounds were all injected with 0.5% Marcaine without epinephrine. Dressings were placed. Sponge, needle and instrument counts were found to be correct at the end of the procedure. The patient was then awakened in the operating room and transported to the recovery room in stable condition. <ELECTRONICALLY SIGNED> By: Mauro Singer DO 01/11/18 0947 [id number] [id number] Singer DO /michelle
== END 2017-12-02 16:00 | disposition home or self-care (01) | DRG 853 ==
LOC: M.ERS 17:18 → M.TBA-ER 17:45 → M.3W 19:32
PROVIDERS: Internal Medicine Gastroenterology; Physician Assistant; Surgery; ADMIT Surgery
PROC: 0D7N8ZZ Dilation of Sigmoid Colon, Via Natural or Artificial Opening Endoscopic (ICD-10-PCS; principal; 2017-11-24)
PROC: 0DTN4ZZ Resection of Sigmoid Colon, Percutaneous Endoscopic Approach (ICD-10-PCS; 2017-11-29)
DX: A41.9 Sepsis, unspecified organism (principal); E43 Unspecified severe protein-calorie malnutrition; L02.211 Cutaneous abscess of abdominal wall; K56.699 Other intestinal obstruction unspecified as to partial versus complete obstruction; K63.2 Fistula of intestine; K57.20 Diverticulitis of large intestine with perforation and abscess without bleeding; N40.0 Benign prostatic hyperplasia without lower urinary tract symptoms; F17.210 Nicotine dependence, cigarettes, uncomplicated; K63.89 Other specified diseases of intestine; K57.30 Diverticulosis of large intestine without perforation or abscess without bleeding; T85.9XXA Unspecified complication of internal prosthetic device, implant and graft, initial encounter; Y83.8 Other surgical procedures as the cause of abnormal reaction of the patient, or of later complication, without mention of misadventure at the time of the procedure; Y92.238 Other place in hospital as the place of occurrence of the external cause; K52.9 Noninfective gastroenteritis and colitis, unspecified; Z83.79 Family history of other diseases of the digestive system; Z79.899 Other long term (current) drug therapy

== ENCOUNTER → 2017-11-16 | Outpatient (CLI) | payer OTHER ==
[~2017-11-16] MED LIST changes: +ASPIR 8181 MG PO; +AUGMENTIN 875-1 EACH PO; +LIPITOR 10 MG10 M1 PO; +MINOCIN100 MG PO; +TYLENOL325 MG PO
== END ==
LOC: M.CT 08:32
DX: K57.32 Diverticulitis of large intestine without perforation or abscess without bleeding (principal)

== ENCOUNTER 2018-01-01 18:31 | Inpatient (IN) | payer OTHER ==
[~2018-01-01] VITALS: Ht 175.3 cm; Wt 87.5 kg
[2018-01-01 18:35] VITALS: BP 109/72
[2018-01-01 18:52] LABS: POC CA IONIZED 4.2 mg/dL (4.5-5.3); POC CREATININE 1.1 mg/dL (0.6-1.3); POC HEMOGLOBIN 14.6 g/dL (12.0-17.0); POC POTASSIUM 5.4 mmol/L (3.5-4.9)
[2018-01-01 18:55] LABS: HEMATOCRIT 43.2 % (42.0-52.0); HEMOGLOBIN 14.8 gm/dL (14.0-18.0); MCH 31.4 pg (26.0-34.0); MCHC 34.3 g/dL (28.0-37.0); MCV 91.6 fL (80.0-100.0); MPV 8.2 fl. (7.2-11.1); RBC 4.71 mil/uL (4.50-6.00); RDW-CV 15.1 % (10.5-14.5); WBC 9.4 thou/uL (4.0-11.0)
[2018-01-01 19:08] LABS: APTT 28.9 Seconds (25.0-31.3)
[2018-01-01 20:26] LABS: URINE BILIRUBIN NEGATIVE (Negative); URINE BLOOD NEGATIVE (Negative); URINE CLARITY CLEAR; URINE COLOR YELLOW; URINE GLUCOSE-RANDOM NEGATIVE (Negative); URINE KETONES 1+ (Negative); URINE LEUKOCYTES NEGATIVE (Negative); URINE NITRITE NEGATIVE (Negative); URINE PROTEIN NEGATIVE (Negative); URINE SPECIFIC GRAVITY <= 1.005 (1.005-1.030); URINE UROBILINOGEN 0.2 E.U./dl (0.2-1.0)
[2018-01-01 21:53] VITALS: BP 118/72
[2018-01-01 22:10] VITALS: BP 137/70
[2018-01-02 04:06] VITALS: BP 142/83
[2018-01-02 05:48] LABS: ANION GAP 11 mmol/L (7-16); BUN 9 mg/dL (7-18); CALCIUM 8.2 mg/dL (8.5-10.1); CHLORIDE 106 mmol/L (98-107); CO2 22 mmol/L (21-32); CREATININE 0.7 mg/dL (0.6-1.3); GLUCOSE 110 mg/dL (70-99); POTASSIUM 4.4 mmol/L (3.5-5.1); SODIUM 139 mmol/L (136-145)
[2018-01-02 05:55] LABS: ALBUMIN 3.3 g/dL (3.4-5.0); ALKALINE PHOSPHATASE 112 U/L (46-116); CHOLESTEROL 256 mg/dL (<200); HDL CHOLESTEROL 40 mg/dL (>40); LDL CHOLESTEROL 198 mg/dL (<100); SGOT 18 U/L (15-37); SGPT 24 U/L (30-65); TC:HDL 6.4 Ratio (Not establshd); TOTAL BILIRUBIN 0.4 mg/dL (<0.1-1.0); TOTAL PROTEIN 6.3 g/dL (6.4-8.2); TRIGLYCERIDE 94 mg/dL (<150); VLDL 19 mg/dL (<40)
[2018-01-02 05:59] LABS: SERUM ASSESSMENT Clear
[2018-01-02 08:15] VITALS: BP 149/78
[2018-01-02 11:07] VITALS: BP 139/79
--- NOTE | 2018-01-02 11:18 | EKG ---
[place] [address] ELECTROCARDIOGRAM REPORT Name: JACK AGUILAR Room: [address] IN R.#: [id number] Admission: 01/01/18 Attend Phys: Karan Anderson MD Discharge: Date of : 62 Report #: [id number] THIS REPORT FOR: //name// [facility] ED Test Date: 2018-01-01 Test Time: 19:22:28 Pat Name: JACK JEFF Department: Room: Gender: M Computer Engineering Technician: : 1960 Requested By: Mariely Sanford Order Number: [id number] MD: Gordon Melendez Measurements Intervals [place] Rate: 96 P: 46 CO: 160 QRS: -17 QRSD: 106 T: 16 QT: 375 QTc: 474 Interpretive Statements Sinus rhythm Borderline left axis deviation Baseline wander in lead(s) V6 Compared to ECG 11/16/2017 17:32:30 Left ventricular hypertrophy no longer present Electronically Signed On 01-02-2018 11:18:10 CDT by Gordon Melendez [email or web address] <ELECTRONICALLY SIGNED> By: Gordon Melendez MD, [facility] 01/02/18 1118 192 21 Gordon Melendez MD, [facility] /EPI
[2018-01-02 15:57] VITALS: BP 132/77
[2018-01-02 20:00] VITALS: BP 150/75
[2018-01-02 23:53] VITALS: BP 162/86
[2018-01-03 04:42] LABS: HEMOGLOBIN 13.5 gm/dL (14.0-18.0); MCH 30.9 pg (26.0-34.0); MCHC 33.7 g/dL (28.0-37.0); MCV 91.8 fL (80.0-100.0); MPV 8.2 fl. (7.2-11.1); RBC 4.36 mil/uL (4.50-6.00); RDW-CV 15.3 % (10.5-14.5); WBC 7.5 thou/uL (4.0-11.0)
[2018-01-03 04:44] VITALS: BP 135/75
[2018-01-03 05:02] LABS: ALBUMIN 3.1 g/dL (3.4-5.0); CALCIUM 8.4 mg/dL (8.5-10.1); CREATININE 0.6 mg/dL (0.6-1.3)
[2018-01-03 08:00] VITALS: BP 151/90
--- NOTE | 2018-01-03 08:57 | CON ---
[facility] [address] [place] [address] CONSULTATION Name: JACK AGUILAR Room: [address] IN .R.#: [id number] Admission: 01/01/18 Attend Phys: Karan Anderson MD Discharge: Date of : 62 Report #: [id number] THIS REPORT FOR: //name// CC: Rodney Anderson DATE OF SERVICE: 01/02/2018 HISTORY OF PRESENT ILLNESS: The patient is a 57-year-old white male who was last seen in the hospital today for preoperative evaluation. The patient has no previous history of heart disease. In fact, previously he had been on no medications. He has had no previous cardiac evaluation. He was actually admitted here to [facility] in November of this year with abdominal discomfort. He was found to have perforated diverticulitis with an abscess. He required laparoscopy. He eventually was discharged. He has done well since that time. He stays active mowing his yard. He was doing well until last night about 6:00; his left hand was noted to have difficulty moving. Denied any slurred speech, blurred vision. He has had no weakness of his leg. He came to the Emergency Room last night. He was felt to have had a TIA. He was seen by both Neurology and Vascular Surgery. He underwent a CTA of the head and neck. This showed a 65% stenosis of the left carotid artery. He is being considered for carotid surgery. I was asked to see him for preoperative evaluation. He denies history of myocardial infarction, chest pain, shortness of breath, palpitation, syncope, edema. He has had no history of heart murmur. PAST MEDICAL HISTORY: Otherwise significant for tonsillectomy. He has no history of hypertension, diabetes, hyperlipidemia. MEDICATIONS: He is on no medication. ALLERGIES: No known drug allergies. FAMILY HISTORY: Negative for heart disease. SOCIAL HISTORY: He is . He and his live in [place]. 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 Smokes half pack of cigarettes a day, has 3-4 drinks a day, several times a week. REVIEW OF SYSTEMS: He has had no history of asthma, peptic ulcer disease, liver disease, kidney disease, cancer, psychiatric illness. PHYSICAL EXAMINATION: GENERAL: Revealed a middle-aged male. He appeared in no distress. VITAL SIGNS: Showed a blood pressure of 120/70, pulse is 80. He was afebrile. HEENT: He was anicteric. Conjunctivae pink. Mucous membranes moist. NECK: Veins do not appear distended. No carotid bruits[place] [id number] CONSULTATION Name: JACK AGUILAR Room: [address] IN ..#: [id number] Admission: 01/01/18 Attend Phys: Karan Anderson MD Discharge: Date of : 62 Report #: [id number] CHEST: Clear to auscultation. CARDIOVASCULAR: Regular rate and rhythm without rub or murmur. ABDOMEN: Soft, nontender. EXTREMITIES: Had no edema. Posterior tibial pulse 2+ bilaterally. SKIN: Warm, dry. NEUROLOGIC: Nonfocal. LYMPH: No adenopathy. MUSCULOSKELETAL: No joint effusion. DATA: ECG on admission last night showed a sinus rhythm, voltage criteria for left ventricular hypertrophy, otherwise unremarkable. His workup in the emergency room, he had a CT scan of the head done without contrast that showed no acute abnormalities. He had a portable chest x-ray that showed normal heart size, clear lung [place]. MRI of the head without contrast showed no acute abnormality. His lab work, sodium 139, potassium 4.4, BUN of 9, creatinine 0.7, glucose 110. His liver function studies were normal. In December, his cholesterol was 256, triglyceride 94, HDL 40, LDL 198. His white blood cell count was 9.4, hemoglobin 14.8. IMPRESSION AND RECOMMENDATIONS: 1. Carotid stenosis. The patient is being considered for carotid endarterectomy. The patient appears to have no cardiac contraindication to surgery. I believe his risk for cardiac complication to surgery is low at this time. 2. Transient ischemic attack. No history of atrial fibrillation. 3. Hyperlipidemia. Since his LDL is greater than 180, I suspect he has familial hypercholesterolemia. I would consider screening family members. I would recommend a statin drug. If his LDL remains greater than 130, I would consider PCSK9 inhibitor. 4. Tobacco abuse. 5. History of excessive alcohol intake. 6. Recent hemicolectomy for diverticular disease with rupture and abscess. <ELECTRONICALLY SIGNED> By: Gordon Melendez MD, [facility] 01/03/18 0857 [id number] [id number] Melendez MD, FAC /nt
--- NOTE | 2018-01-03 11:01 | 2DMMODE ---
[place] [address] 2 D/M-MODE ECHOCARDIOGRAM Name: JACK AGUILAR Room: [facility] IN [facility]#: [id number] Admission: 01/01/18 Attend Phys: Karan Anderson, Discharge: Date of : 62 Date of Service: 01/03/18 [facility] Report #: [id number] THIS REPORT FOR: //name// APPROVED REPORT Study performed: 01/03/2018 09:26:23 EXAM: Comprehensive 2D, Doppler, and color-flow Echocardiogram Patient Location: In-Patient Room #: 203 Status: routine BSA: 2.03 HR: 72 bpm BP: 151/90 mmHg Rhythm: NSR Other Information Study Quality: Excellent Indications CVA/TIA Echo Enhancing Agent Indication: Rule out Shunt Agent(s) / Amount(s) Used: Agitated Saline 10 cc 2D Dimensions LVEF(%): 68.13 (>50%) IVSd: 10.82 (7-11mm) LVOT Diam: 23.37 (18-24mm) LVDd: 51.73 mm PWd: 9.34 (7-11mm) Ascending Ao: 38.80 (22-36mm) LVDs: 31.94 (25-40mm) Aortic Root: 42.14 mm Austin's LVEF: 68.13 % Volumes Left Atrial Volume (Systole) LA ESV Index: 29.00 mL/m2 Aortic Valve AoV Peak Reese.: 1.19 m/s AO Peak Gr.: 5.62 mmHg LVOT Max P.92 mmHg AO Mean Gr.: 2.88 mmHg LVOT Mean P.97 mmHg LVOT Max V: 0.99 m/s AO V2 VTI: 21.05 cm LVOT Mean V: 0.64 m/[place] [address] 2 D/M-MODE ECHOCARDIOGRAM Name: JACK AGUILAR Room: [address] IN ..#: [id number] Admission: 01/01/18 Attend Phys: Karan Anderson, Discharge: Date of : 62 Date of Service: 01/03/18 [facility] Report #: [id number] DESMOND (VTI): 4.67 cm2 LVOT V1 VTI: 22.91 cm Mitral Valve E/A Ratio: 0.99 MV Decel. Time: 194.76 ms MV E Max Reese.: 0.74 m/s MV PHT: 56.48 ms MVA (PHT): 3.90 cm2 TDI E/Lateral E': 6.73 E/Medial E': 5.69 Medial E' Reese.: 0.13 m/s Lateral E' Reese.: 0.11 m/s Pulmonary Valve PV Peak Reese.: 0.86 m/s PV Peak Gr.: 2.93 mmHg Left Ventricle The left ventricle is normal size. There is normal LV segmental wall motion. There is normal left ventricular wall thickness. Left ventricular systolic function is normal. The left ventricular ejection fraction is within the normal range. LVEF is 60-65%. The left ventricular diastolic function is normal. Right Ventricle The right ventricle is normal size. The right ventricular systolic function is normal. Atria Left atrium is mildly dilated. Interatrial septum is intact without evidence of ASD or PFO. The right atrium size is normal. Aortic Valve The aortic valve is normal in structure. No aortic regurgitation is present. There is no aortic valvular stenosis. Mitral Valve The mitral valve is normal in structure. Trace mitral regurgitation. No evidence of mitral valve stenosis. Tricuspid Valve The tricuspid valve is normal in structure. Unable to assess PA pressure. Trace tricuspid regurgitation. Pulmonic Valve The pulmonary valve is normal in structure[place] [address] 2 D/M-MODE ECHOCARDIOGRAM Name: JACK AGUILAR Room: [address] IN M.R.#: [id number] Admission: 01/01/18 Attend Phys: Karan Anderson, Discharge: Date of : 62 Date of Service: 01/03/18 1100 Report #: [id number] regurgitation. Great Vessels Aortic root is mildly dilated. IVC is normal in size and collapses with >50% inspiration Pericardium There is no pericardial effusion. <Conclusion> LVEF is 60-65%. Left atrium is mildly dilated. Interatrial septum is intact without evidence of ASD or PFO. <ELECTRONICALLY SIGNED> By: Gordon Melendez MD, FACC 01/03/18 1100 1100 1100 Gordon Melendez MD, FACC /INF
[2018-01-03 11:16] VITALS: BP 146/89
[2018-01-03 13:00] VITALS: BP 146/89
[2018-01-03 17:11] LABS: HEMATOCRIT 39.1 % (42.0-52.0); HEMOGLOBIN 12.9 gm/dL (14.0-18.0); MCH 30.7 pg (26.0-34.0); MCV 93.2 fL (80.0-100.0); MPV 7.9 fl. (7.2-11.1); RBC 4.2 mil/uL (4.50-6.00); RDW-CV 15.3 % (10.5-14.5); WBC 12.3 thou/uL (4.0-11.0)
[2018-01-03 17:16] LABS: POTASSIUM 3.7 mmol/L (3.5-5.1)
[2018-01-03 20:00] VITALS: BP 103/67
[2018-01-03 22:00] VITALS: BP 124/84; BP 137/74
--- NOTE | 2018-01-03 22:15 | CON ---
[facility] [address] [place] [address] CONSULTATION Name: JACK AGUILAR Room: [address] IN .R.#: [id number] Admission: 01/01/18 Attend Phys: Karan Anderson MD Discharge: Date of : 62 Report #: [id number] THIS REPORT FOR: //name// CC: Rodney Anderson DATE OF SERVICE: 01/01/2018 HISTORY OF PRESENT ILLNESS: This is a 57-year-old male patient who was seen in Emergency Room. I talked to the Emergency Room physician, Dr. Sanford, and Dr. Mederos multiple times. I talked to the family and the patient multiple times. He was apparently sitting and suddenly noticed that he had weakness on the left side. It was mostly in the wrist. He was worked up, but then his symptoms resolved, but subsequently came back again, and then resolved again. He drinks alcohol, but it is very unclear how much alcohol he drinks. He said he drank a couple of drinks today, but his alcohol level is 175. He also smokes. REVIEW OF SYSTEMS: A 14-point review of systems was carried out and this patient has a history of enlarged prostate and smoking and drinking alcohol. He is not hypertensive. He does not take any medication, but his blood pressure was running low here. Otherwise, his 14-point review of systems was noncontributory. PAST MEDICAL HISTORY: Negative for any stroke. FAMILY HISTORY: Negative for early age stroke. SOCIAL HISTORY: He drinks and smokes. PHYSICAL EXAMINATION: Indicate that it was carried out many times. His last examination indicates he is alert, responsive, able to follow simple and complex commands. His speech, concentration, fund of knowledge and memory is unremarkable. Cranial nerve examination 2-12 was mostly unremarkable. There was some questionable weakness on the left side, left arm may be trace weaker than the right, but he is right handed. Position sense was intact. His reflexes were symmetrical. There was no meningeal sign. There was no carotid bruit. He is well developed individual. His blood pressure is 118/72, respirations 13, temperature is 98.6. LABORATORY DATA: WBC count was 9.4. His MRI was reviewed with the radiologist, so was his CT angio and the MRI does not show any stroke. IMPRESSION: I had numerous discussions with the patient and the family. We talked about tPA. We talked that it used to be considered contraindication for giving it if the deficit is mild or rapidly improving. That is not the case anymore. It can be given because once the patient [place] [address] CONSULTATION Name: JACK AGUILAR Room: [address] IN .R.#: [id number] Admission: 01/01/18 Attend Phys: Karan Anderson MD Discharge: Date of : 62 Report #: [id number] much can be done. Since all his workup came out to be negative, they decided that they do not want any tPA. So tPA was not given, but I asked the Emergency Room doctor to give him some fluid to bump up his blood pressure. I will give him an aspirin. We will check his cholesterol, but he needs to stop drinking and smoking. I spent more than 70 minutes of time taking care of this patient and majority of that time was spent examining this patient numerous times and discussing with the patient and the family indication, potential complications and alternative of tPA and management in great detail numerous times. He does have a carotid stenosis. He will need management of that because it appeared to be 65%. Thank you very much for this referral. <ELECTRONICALLY SIGNED> By: Aneesh Devlin MD 01/03/18 2215 [id number] [id number] Devlin MD /nt
[2018-01-04] VITALS (7 sets, daily range): BP systolic 97–121; BP diastolic 70–77
[2018-01-04] MEDS ORDERED: ASPIR 8181 MG PO (09:03)
[2018-01-04] MEDS ORDERED: LIPITOR 10 MG10 M1 PO (09:22)
[2018-01-04] MEDS ORDERED: MINOCIN100 MG PO (10:24)
[2018-01-04] MEDS ORDERED: TYLENOL325 MG PO (10:25)
--- NOTE | 2018-01-22 06:51 | OP ---
[facility] [address] [place] [address] OPERATIVE REPORT Name: JACK AGUILAR Room: [address]#: [id number] Admission: 01/01/18 Attend Phys: Karan Anderson MD Discharge: 01/04/18 Date of : 62 Report #: [id number] THIS REPORT FOR: //name// CC: Rodney Anderson DATE OF SERVICE: 01/03/2018 PREOPERATIVE DIAGNOSIS: Carotid stenosis. POSTOPERATIVE DIAGNOSIS: Carotid stenosis. PROCEDURE: Right carotid artery repair with patch angioplasty. Intraoperative ultrasound with interpretation of right carotid artery. SURGEON: Shree Yung MD. ELECTRIC GOLF CART REPAIRER: Suzette VALENCIA. COMPLICATIONS: None. ESTIMATED BLOOD LOSS: 100 mL. SPECIMEN: None. ANESTHESIA: General. Plaque within the internal carotid artery. I found quite a bit of scar tissue. There is no disruption of this area. It did not require endarterectomy. There was really minimal to no plaque within the common and internal carotid arteries. The stenosis was quite high and thus, rather than performing endarterectomy of the scar, I performed a patch angioplasty, the increased size of the vessel. INDICATION FOR PROCEDURE: The patient is a very pleasant 57-year-old white male who presented with symptoms of TIA, left upper extremity. Workup revealed a tight stenosis of his right internal carotid artery. This lesion is somewhat higher up in the bulb within the mid internal carotid artery. It does appear to be amenable to an endarterectomy with patch angioplasty. Informed consent was obtained from the patient with risks including but not limited to bleeding, infection, need for further surgery, pain, , heart attack, stroke, cranial nerve injury. He understood these risks and is agreeable to proceed. DESCRIPTION OF PROCEDURE: The patient was taken to the OR and placed in supine position. After adequate general anesthesia was initiated, timeout was performed. The patient's right neck and chest were prepped and draped in usual sterile fashion. The patient [place] [address] OPERATIVE REPORT Name: JACK AGUILAR Room: [address]#: [id number] Admission: 01/01/18 Attend Phys: Karan Anderson MD Discharge: 01/04/18 Date of : 62 Report #: [id number] The patient was systemically heparinized throughout the critical portion of procedure. I created a transverse incision in the patient's right neck. Sharp and blunt dissection was carried down to the common carotid artery. I controlled the common carotid artery as well as the internal and external carotid artery branches. The carotid artery was soft along its length with no calcific plaque. I heparinized the patient at this point in time. I created longitudinal arteriotomy from the common carotid artery on to the internal carotid artery. I did not encounter any plaque. I placed a 10 shunt without difficulty. I examined the area of narrowing. It was quite narrow at this level, but again this was not plaque, it was more of scar tissue. There was no vascular web that I could identify. There was no plaque. I chose not to perform endarterectomy. This area of stenosis was quite high, and again, there is no evidence of plaque or ruptured plaque. I opened a bovine pericardial patch 8 x 0.8 and used this to close the arteriotomy. This widened the area of stenosis significantly. Upon completion of my repair, there was adequate hemostasis and excellent blood flow through the internal and external carotid arteries. I performed intraoperative ultrasound. This showed normal waveform velocity of the common internal carotid artery as well as patent flow in the external carotid artery. I corrected the heparin with protamine, controlled bleeding as needed with the Harpal, ties, clips and electrocautery. We closed the wound in multiple layers using 2-0 Vicryl, 3-0 Vicryl and Stratafix for skin. Incision was dressed with Dermabond. The patient tolerated procedure well and was taken alert and awake to recovery room in good condition, moving all extremities without signs or symptoms of TIA or stroke. Plan at this time will be to see how the patient does. If he has any recurrence of his stenosis over time, then I would recommend a carotid stent given the high lesion. I do believe patch angioplasty will afford him through his internal without needing further intervention. I would also recommend continued workup for stroke as it is unclear if this lesion was the cause of his TIA. <ELECTRONICALLY SIGNED> By: Shree Yung MD 01/22/18 [id number] Yung MD /nt
== END 2018-01-04 10:45 | disposition home or self-care (01) | DRG 38 ==
LOC: M.ERS 18:31 → M.2W 21:16 → M.ICU 21:16 → M.TBA-ER 21:16 → M.2W 22:04 → M.ICU 01-03 14:29
PROVIDERS: Internal Medicine; Personal Emergency Response Attendant; Surgery Vascular Surgery; ADMIT Internal Medicine
DX: I65.23 Occlusion and stenosis of bilateral carotid arteries (principal); E44.1 Mild protein-calorie malnutrition; G45.9 Transient cerebral ischemic attack, unspecified; N40.0 Benign prostatic hyperplasia without lower urinary tract symptoms; E78.5 Hyperlipidemia, unspecified; F17.210 Nicotine dependence, cigarettes, uncomplicated; Z79.899 Other long term (current) drug therapy; Z83.79 Family history of other diseases of the digestive system